=== PATIENT | male | born 1940 | race Caucasian/White ===

== ENCOUNTER → 2018-02-24 15:27 | Outpatient (CLI) | payer MEDICARE, SELFPAY ==
[2018-02-24 16:13] LABS: PSA,Total- Diagnostic 3.01 ng/mL (0.0-4.0)
== END ==
PROVIDERS: Visit Provider Urology
DX: C61 Malignant neoplasm of prostate (principal)
CPT/HCPCS: 36415; 84153

== ENCOUNTER → 2018-07-21 15:07 | Outpatient (CLI) | payer MEDICARE, SELFPAY | PROVIDERS: Referring Provider Urology; Visit Provider Urology | DX: C61 Malignant neoplasm of prostate (principal); R97.20 Elevated prostate specific antigen [PSA] | CPT/HCPCS: 36415; 84153 ==

== ENCOUNTER → 2018-08-02 07:58 | Outpatient (CLI) | payer MEDICARE, SELFPAY ==
--- NOTE | 2018-08-02 08:12 | NM_ITS ---
CLINICAL: 78-year-old male with reported history of carcinoma of the prostate. WHOLE BODY 99m Tc MDP RADIONUCLIDE BONE SCINTIGRAPHY COMPARISON: Previous whole body bone scintigraphy study dated 06/16/2016 FINDINGS: Following the intravenous administration of 25.4 mCi of 99m Tc MDP, whole body bone images reveal: 1. Increased radiopharmaceutical concentration is identified in the acromioclavicular and sternoclavicular compartments of both shoulders, medial glenohumeral compartment of the right shoulder, the bilateral hands, right and left knees, sixth thoracic posteriorly on the left, left sacroiliac joint. 2. The remaining skeletal structures are scintigraphically unremarkable with normal-appearing renal images and urinary bladder activity identified. NM/Bone Scan Whole Body IMPRESSION: 1. The increase in radiopharmaceutical concentration persistently defined in the bilateral shoulders, right and left hands, knees bilaterally, thoracic spine and left sacroiliac joint remains most consistent with degenerative arthritis. 2. Overall compared to the previous whole-body bone scintigraphy study dated 06/16/2016, there is no significant interval change. No current typical scintigraphic evidence of skeletal metastatic disease is defined on the current examination. Electronically Signed: Pancho Gaston DO at 23:44 EST Tel , Service support ,
== END ==
PROVIDERS: Referring Provider Urology; Visit Provider Urology
DX: C61 Malignant neoplasm of prostate (principal)
CPT/HCPCS: 36415; 78306; 84153

== ENCOUNTER → 2020-03-11 17:40 | Outpatient (CLI) | payer MEDICARE, SELFPAY ==
--- NOTE | 2020-03-11 17:45 | CT_ITS ---
STUDY: CT ABDOMEN AND PELVIS WITH CONTRAST REASON FOR EXAM: Male, 79 years old. MALIGNANT PROSTATE NEOPLASM YEARLY CHECK UP -- HX:HTN,COPD,PROSTATE CANCER WITH RADIATION RADIATION DOSAGE (If Supplied By Facility): CTDIvol = ( 21.43 ) mGy, DLP = ( 2226.42 ) mGycm TECHNIQUE: Transaxial images were obtained from the dome of the diaphragm to the symphysis pubis with oral contrast. Oral and amp; IV Readi-CAT and amp; 100mL Isovue-300 was administered. Sagittal and coronal images were reconstructed. Individualized dose optimization techniques were used for this CT. COMPARISON: Comparison is made with prior examination dated June 11, 2016. FINDINGS: Stable mild scarring at the lung bases. Prior CABG. Coronary artery calcification. Stable 1.8 cm cyst in the dome of the left lobe of the liver. Normal gallbladder and extrahepatic biliary system. Normal spleen. There is diffuse atrophy of the pancreas. Normal bilateral adrenal glands. Stable 3.4 cm cyst in the right kidney. 2.5 cm x 3.7 cm cyst in the upper pole of the left kidney. This is unchanged. Normal visualized stomach. Normal small intestine. There are multiple colonic diverticula consistent with diverticulosis. The appendix is visualized and appears normal. There is diffuse atherosclerotic calcification of the abdominal aorta and the major visceral branches, without a demonstrated aneurysm. Normal inferior vena cava. Normal retroperitoneum. Normal urinary bladder. There are prostatic calcifications. The prostate measures 4.6 cm x 5.1 cm. Metallic radiation seeds are seen along the inferior aspect of the prostate gland. Normal abdominal wall. Normal osseous structures. CT/Abdomen/Pelvis WITH Contrast IMPRESSION: Stable examination. Electronically Signed: Deven Heck, at 15:13 EDT , Service support ,
[2020-03-11 18:11] LABS: CREATININE FINGERSTICK 0.8 mg/dL (0.70-1.30); EGFR FINGERSTICK > 60.0000 mL/min (>60)
== END ==
PROVIDERS: PCP Nurse Practitioner Primary Care; Referring Provider Nurse Practitioner Adult Health; Visit Provider Nurse Practitioner Adult Health
DX: C61 Malignant neoplasm of prostate (principal)
CPT/HCPCS: 74177; Q9967

== ENCOUNTER → 2020-03-14 09:48 | Outpatient (CLI) | payer MEDICARE, SELFPAY ==
--- NOTE | 2020-03-14 09:52 | NM_ITS ---
CLINICAL: 79-year-old male with reported history of carcinoma of the prostate. WHOLE BODY 99m Tc MDP RADIONUCLIDE BONE SCINTIGRAPHY COMPARISON: Previous whole body bone scintigraphy study dated 08/02/2018, CT of the abdomen-pelvis report 03/11/2020 FINDINGS: Following the intravenous administration of approximately 25.0 mCi of 99m Tc MDP, whole body bone images reveal: 1. Increased radiopharmaceutical concentration is presently identified in the acromioclavicular and sternoclavicular compartments of both shoulders, bilateral knees, left posterior sacrum, right and left hands. 2. The remaining skeletal structures are scintigraphically unremarkable with normal-appearing renal images and urinary bladder activity identified. NM/Bone Scan Whole Body IMPRESSION: 1. The increase in radiopharmaceutical concentration currently defined in the bilateral shoulders and knees, sacrum, hands bilaterally is commensurate with degenerative arthritis. 2. Overall compared to the previous whole body bone scintigraphy study dated 08/02/2018, there is no significant interval change. No present typical scintigraphic evidence of diffuse axial skeletal metastatic disease is observed. Electronically Signed: Pancho Gaston DO at 22:58 EDT Tel , Service support ,
== END ==
PROVIDERS: PCP Nurse Practitioner Primary Care; Referring Provider Nurse Practitioner Adult Health; Visit Provider Nurse Practitioner Adult Health
DX: C61 Malignant neoplasm of prostate (principal)
CPT/HCPCS: 78306

== ENCOUNTER → 2021-04-29 14:05 | Outpatient (CLI) | payer MEDICARE, SELFPAY ==
--- NOTE | 2021-04-29 13:30 | PET_ITS ---
EXAMINATION: 18F Fluciclovine PET/CT CLINICAL HISTORY: A 80-year-old male with history of carcinoma of the prostate presenting for restaging examination. COMPARISON EXAMINATION: CT of the abdomen and pelvis report dated 03/12/20. PROCEDURE: The patient received an intravenous bolus injection of 9.3 mCi of Axumin (fluciclovine F-18), on the imaging table with the patient in the supine position followed by an intravenous normal saline flush. The patient in the supine position with arms above the head, CT scan for attenuation correction was performed immediately following the bolus injection and left up for 1-2 minutes. The PET scan acquisition was begun within 3-5 minutes following injection from mid thigh to the base of the skull. The total scan time was registered between 20-30 minutes. Axumin (fluciclovine F-18) injection is indicated for positron emission tomography PET imaging in men with suspected prostate cancer recurrence based on elevation of the serum prostatic surface antigen (PSA) levels following prior treatment intervention. HEIGHT: 73 inches. WEIGHT: 224 lbs. LIVER BLOOD POOL SUV: 7.9 BLOOD POOL: 1.5 BONE MARROW: 2.1 INDEX LESION SIZE SUV INTERPRETATION Lower pelvis, prostate gland, heterogeneous 27.7 x 38.6-mm (frame 43) 12.0 > hepatic ref. Fulfills quantitative criteria for viable neoplasm FINDINGS: Head/Neck: There is no evidence of abnormal increased radiopharmaceutical concentration on review of the acquisitions of the cranial vault, bilateral lateral and anterior neck structures. CHEST: There is visualization of left ventricular myocardial radiotracer uptake. Otherwise, there is no evidence of abnormal increased 18F fluciclovine uptake on inspection of all three axis reconstructions. Pertinent chest CT findings are as follows. There is evidence of prior median sternotomy. Coronary arterial calcification is observed. There is atherosclerotic calcification defined in the thoracic aorta without evidence of dilatation-aneurysm formation. Subcentimeter bilateral axillary and scattered mediastinal soft tissue reveals no evidence of increased radiopharmaceutical concentration. There are no parenchymal densities-nodules defined in the right and left hemithorax with facilitated tracer uptake readily identified. Abdomen/Pelvis: Intense increased radiopharmaceutical concentration is defined in the distribution of the prostate gland. Uptake involves the left anterior-lateral peripheral-transition zones extending posteriorly to the base to include the peripheral zone. The calculated maximal standard uptake value is 12.0, greater than the liver reference. The maximal axial diameter of the corresponding metabolic, morphologic abnormality on review of CT of the pelvis dated 04/29/21 is 27.7-mm (transverse) x 38.6-mm (AP). Physiologic radiopharmaceutical concentration is defined in the hepatic, splenic parenchyma, right and left kidneys, intestinal tract and pancreatic head-tail. Pertinent abdomen and pelvis CT findings are as follows. Atherosclerotic calcification is defined in the abdominal aorta without evidence of aneurysm. Abdominal-pelvic arterial calcification is defined. Right and left inguinal soft tissue densities with fatty hilus are a metabolic. Exophytic cyst formation is observed in the right kidney. Calcifications are noted in the bilateral renal units. Calcified granuloma formation is noted in the splenic parenchyma. A fat-containing left inguinal hernia is noted. Skeletal: Degenerative changes are noted in the cervical, thoracic and lumbar spine without evidence of increased radiopharmaceutical concentration. There are no sclerotic, mixed sclerotic-lytic and/or lytic changes noted within the context of the visualized appendicular and axial skeletal structures. PET/PET/CT Tumor Base -Thigh Subs IMPRESSION: 1. ABNORMAL EXAMINATION INDICATIVE OF MALIGNANT VIABLE NEOPLASM. 2. Increased radiopharmaceutical concentration heterogeneously defined in the prostate gland fulfills quantitative criteria for malignant transformation. (Mak et al, Journal of Nuclear Medicine 55:1986, 2014). 3. No other definitive scintigraphic abnormalities are identified. Electronic Signature Pancho Gaston D.O. Electronically Signed: Pancho Gaston DO at 15:19 EDT Tel , Service support ,
== END ==
PROVIDERS: PCP Nurse Practitioner Primary Care; Referring Provider Urology; Visit Provider Urology
DX: C61 Malignant neoplasm of prostate (principal)
CPT/HCPCS: 78815; A9588

== ENCOUNTER → 2022-07-07 | Outpatient (CLI) | payer MEDICARE, SELFPAY | END | disposition home or self-care (01) | LOC: LAB 11:03 | PROVIDERS: PCP Nurse Practitioner Primary Care; Referring Provider Registered Nurse; Visit Provider Registered Nurse | DX: C61 Malignant neoplasm of prostate (principal) | CPT/HCPCS: 36415; 84153 ==

== ENCOUNTER → 2023-01-21 | Outpatient (CLI) | payer MEDICARE, SELFPAY | END | disposition home or self-care (01) | LOC: LAB 15:07 | PROVIDERS: PCP Nurse Practitioner Primary Care; Referring Provider Urology; Visit Provider Urology | DX: C61 Malignant neoplasm of prostate (principal) | CPT/HCPCS: 36415; 84153 ==

== ENCOUNTER → 2023-03-09 | Outpatient (CLI) | payer MEDICARE, SELFPAY ==
--- NOTE | 2023-03-09 09:27 | NM_ITS ---
CLINICAL: 79-year-old male with history of primary prostate carcinoma. WHOLE BODY 99m Tc MDP RADIONUCLIDE BONE SCINTIGRAPHY COMPARISON: Previous whole body bone scintigraphy study dated 03/14/2020 FINDINGS: Following the intravenous administration of 26.3 mCi of 99m Tc MDP, whole body bone images reveal: 1. Increased radiotracer distribution is defined in the acromioclavicular, sternoclavicular compartments of both shoulders, the glenohumeral compartment of the right shoulder, the fifth lumbar vertebra posteriorly on the left, the medial tibial compartments of both knees. 2. The remaining skeletal structures are scintigraphically unremarkable with normal-appearing renal images and urinary bladder activity identified. NM/Bone Scan Whole Body IMPRESSION: 1. The increase in radiopharmaceutical distribution defined in the bilateral shoulders, the fifth lumbar vertebra and knee articulations bilaterally is commensurate with degenerative arthrosis. 2. Overall compared to the previous whole body bone scintigraphy study dated 03/14/2020, there is minimal interval change. Electronically Signed: Pancho Gaston, at 10:28 EDT ,
== END | disposition home or self-care (01) ==
PROVIDERS: PCP Nurse Practitioner Primary Care; Referring Provider Urology; Visit Provider Urology
DX: N28.1 Cyst of kidney, acquired (principal); C61 Malignant neoplasm of prostate
CPT/HCPCS: 78306; A9503

== ENCOUNTER → 2023-05-11 | Outpatient (CLI) | payer MEDICARE, SELFPAY ==
--- NOTE | 2023-05-11 17:52 | CT_ITS ---
STUDY: CT ABDOMEN AND PELVIS WITHOUT AND WITH CONTRAST REASON FOR EXAM: Male, 82 years old. PROSTATE CANCER RADIATION DOSAGE (If Supplied By Facility): CTDIvol = ( 24.91 ) mGy, DLP = ( 3622.06 ) mGycm TECHNIQUE: IV 100mL Isovue-370 was administered. Transaxial images were obtained from the dome of the diaphragm to the symphysis pubis. Multiplanar coronal and sagittal images were reformatted. Individualized Dose Optimization Techniques Were Used For This CT. COMPARISON: FINDINGS: The visualized lung bases demonstrate hyperaeration. The visualized portions of the heart are within normal limits. 1.6 cm left hepatic cyst in the liver. Normal gallbladder and extrahepatic biliary system. Normal spleen. Normal pancreas. Normal bilateral adrenal glands. Normal visualized stomach. Normal small intestine. Diverticulosis of the colon. The appendix is visualized and appears normal. 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 No retroperitoneal adenopathy. Vascular calcifications and possible nonobstructive calculi in the kidneys. Bilateral renal cysts. Mild wall thickening of the urinary bladder. Bilateral calculi are noted at the UVJs up to 11 mm. Mild fatty density in the inguinal canals. Small fatty umbilical hernia. Normal osseous structures. 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 Vascular calcifications and possible nonobstructive calculi in the kidneys. Bilateral renal cysts. Mild wall thickening of the urinary bladder. Bilateral calculi are noted at the UVJs up to 11 mm. Mild fatty density in the inguinal canals. Hepatic cyst. Electronically Signed: Roshan Arguelles DO at 20:11 EDT ,
[2023-05-11 18:18] LABS: CREATININE FINGERSTICK < 0.9 mg/dL (0.70-1.30); EGFR FINGERSTICK > 60.0000 mL/min (>60)
== END | disposition home or self-care (01) ==
LOC: CT 17:45
PROVIDERS: PCP Nurse Practitioner Primary Care; Referring Provider Urology; Visit Provider Urology
DX: C61 Malignant neoplasm of prostate (principal); N28.1 Cyst of kidney, acquired
CPT/HCPCS: 74178; Q9967

== ENCOUNTER 2023-06-23 07:28 | Day surgery (SDC) | payer MEDICARE, SELFPAY ==
[2023-06-23] VITALS (7 sets, daily range): BP systolic 135–151; BP diastolic 61–68; PULSE 58–68; RESP 16; TEMP 36.1–37.3; O2SAT 91–100; BMI 28.6
[2023-06-23] MEDS: Lactated Ringers 1,000 ML 15 ML IV (08:19)
--- NOTE | 2023-06-23 08:59 | HP.PCM_ITS ---
HPI - General General Date of Service: 06/23/23 Chief Complaint: Obstruction of both ureters with large ureteral stones HPI Narrative MARZENA TAPIA, is a 83 M who presents to the hospital for bilateral ureteroscopy laser lithotripsy of stones in the ureters, he had prior stents placed, he does have a scarred down urethra so we did a dilation of the urethra prostatic urethra and placed a Cervantes catheter he now presents to the hospital for bilateral ureteroscopy and stent placement and laser lithotripsy of stones. ON LICENSE OF [facility] Medical History (Updated 06/21/23 @ 11:00 by Mariana Quinn) Alcohol use Asthma Cancer Cardiology follow-up encounter COPD (chronic obstructive pulmonary disease) Easy bruising Former smoker Hepatitis High cholesterol History of echocardiogram History of edema History of stress test Hypertension Indwelling urethral catheter present Leg cramps On home oxygen therapy Prostate disease Restless legs Wears dentures Wears glasses Wears partial dentures Home Medications albuterol sulfate 2.5 mg/3 mL (0.083 %) solution for nebulization 2.5 mg inhalation BID 06/21/23 [History Last Taken 06/23/23] ascorbic acid (vitamin C) 1,000 mg tablet,extended release (C Complex) 1,000 mg PO DAILY 06/21/23 [History Last Taken Unknown] budesonide 160 mcg-glycopyr 9 mcg-formot 4.8 mcg/actuation HFA inhaler (Breztri Aerosphere) 2 inh inhalation BID 06/21/23 [History Last Taken 06/23/23] cholecalciferol (vitamin D3) 125 mcg (5,000 unit) tablet (Vitamin D3) 125 mcg PO DAILY 06/21/23 [History Last Taken Unknown] coenzyme Q10 100 mg capsule (CoQ-10) 100 mg PO DAILY 06/21/23 [History Last Taken Unknown] collagen,hydrolysate 500 mg-biotin 800 mcg-ascorbic acid 50 mg capsule (Collagen 1500 Plus C) 1 cap PO QHS 06/21/23 [History Last Taken Unknown] cyanocobalamin-liver extract tablet 1 tab PO DAILY 06/21/23 [History Last Taken Unknown] furosemide 20 mg tablet 20 mg PO DAILY 06/21/23 [History Last Taken Unknown] guaifenesin 600 mg tablet, extended release 12 hr (Mucus Relief ER) 1,200 mg PO DAILY 06/21/23 [History Last Taken 06/23/23 06:30] ipratropium bromide 17 mcg/actuation HFA aerosol inhaler (Atrovent HFA) 2 inh inhalation BID 06/21/23 [History Last Taken 06/23/23] krill 500 mg-omega-3 150 mg-dha 45 mg-epa 75 df-moasyyq-nvpsy capsule (krill oil) 1 cap PO DAILY 06/21/23 [History Last Taken 06/20/23] losartan 100 mg tablet 100 mg PO DAILY 06/21/23 [History Last Taken 06/23/23 06:30] magnesium 100 mg tablet 400 mg PO QHS 06/21/23 [History Last Taken Unknown] montelukast 10 mg tablet 10 mg PO QHS 06/21/23 [History Last Taken Unknown] pyridoxine (vitamin B6) 100 mg tablet 100 mg PO DAILY 06/21/23 [History Last Taken Unknown] rivaroxaban 2.5 mg tablet (Xarelto) 2.5 mg PO Q24H 06/21/23 [History Last Taken 06/19/23] saw palmetto 450 mg capsule 450 mg PO BID 06/21/23 [History Last Taken Unknown] selenium 200 mcg tablet 200 mcg PO DAILY 06/21/23 [History Last Taken Unknown] simvastatin 5 mg tablet 5 mg PO QHS 06/21/23 [History Last Taken Unknown] zinc gluconate 50 mg tablet 50 mg PO DAILY 06/21/23 [History Last Taken Unknown] Allergy/AdvReac Type Severity Reaction Status Date / Time ciprofloxacin [From Cipro] Allergy Intermediate Rash Verified 06/23/23 08:03 lisinopril AdvReac Mild Other Verified 06/23/23 08:03 Surgical History (Updated 06/21/23 @ 11:00 by Mariana Quinn) History of cardiac catheterization History of cystoscopy Hx of colonoscopy Hx of cystoscopy Hx of heart bypass surgery Hx of left cataract extraction Hx of right cataract extraction Social History Smoking Status: Former smoker Vital Signs Vital Signs Vital Signs: 06/23/23 08:07 06/23/23 08:07 Temperature 99.1 F Temperature Source Temporal Pulse Rate 68 Respiratory Rate 16 Respiratory Pattern Normal Blood Pressure 135/61 H Blood Pressure Mean 85 Blood Pressure Source Monitor Blood Pressure Position Semi-Fowlers Blood Pressure Location Left Arm Pulse Ox 91 Oxygen Delivery Method Room Air Weight Weight: 98 kg Body Mass Index (BMI) 28.6
[2023-06-23] MEDS: Cefazolin 2 GM in 0.9% Normal Saline (100mL Bag) 100 ML IV (09:30)
--- NOTE | 2023-06-23 11:00 | DCINST_ITS ---
Discharge Instructions Diet Discharge Diet: No restrictions Activity Discharge Activity: Return to Normal Activity and May Not Drive (while taking narcotic pain medications.) Dressing / Incision Call your doctor if you observe: Fever of 101 or Higher Follow Up Care Please Follow Up With: Britton Morocho MD When: Call [phone] for an appointment Test Results: Test results from this visit will be discussed in further detail at your follow- up appointment, if applicable. Discharge Plan Admission Primary Reason for Your Visit: Laser of stones Attending Provider: Britton Morocho Primary Care Provider: Damien Arias NP Discharge Orders/Prescriptions Prescriptions: New cephalexin 500 mg capsule 500 mg PO TID Qty: 15 0RF Continued guaifenesin [Mucus Relief ER] 600 mg tablet extended release 12hr 1,200 mg PO DAILY Patient Comments: TAKE 1 TABLET BY MOUTH TWICE A DAY FOR 7 DAYS albuterol sulfate 2.5 mg /3 mL (0.083 %) solution for nebulization 2.5 mg inhalation BID Patient Comments: TAKE 1 VIAL INHALATION FOUR TIMES A DAY NEEDED Atrovent HFA 17 mcg/actuation HFA aerosol inhaler 2 inh INHALATION BID Breztri Aerosphere 160-9-4.8 mcg/actuation HFA aerosol inhaler 2 inh INHALATION BID losartan 100 mg tablet 100 mg PO DAILY pyridoxine (vitamin B6) 100 mg tablet 100 mg PO DAILY cyanocobalamin-liver extract Tablet 1 tab PO DAILY Xarelto 2.5 mg tablet 2.5 mg PO Q24H furosemide 20 mg tablet 20 mg PO DAILY magnesium 100 mg tablet 400 mg PO QHS simvastatin 5 mg tablet 5 mg PO QHS krill oil [id number] mg capsule 1 cap PO DAILY coenzyme Q10 [CoQ-10] 100 mg capsule 100 mg PO DAILY Collagen 1500 Plus C 500 mg-800 mcg- 50 mg capsule 1 cap PO QHS saw palmetto 450 mg capsule 450 mg PO BID Rx Instructions: give with food (meal/snack) selenium 200 mcg tablet 200 mcg PO DAILY zinc gluconate 50 mg tablet 50 mg PO DAILY cholecalciferol (vitamin D3) [Vitamin D3] 125 mcg (5,000 unit) tablet 125 mcg PO DAILY C Complex 1,000 mg tablet extended release 1,000 mg PO DAILY montelukast 10 mg tablet 10 mg PO QHS Referrals / Follow Up: Baltes,Damien SURVEY RESEARCH TEACHER, SURVEY RESEARCH TEACHER-C [Primary Care Provider] - Disposition Disposition (needs filled in before D/C Order can be placed): Home, Self Care
--- NOTE | 2023-06-23 11:00 | PCM.OPRPT ---
Report of Operation Date of Procedure: 06/23/23 Pre-Operative Diagnosis: Prostatic urethral stricture, bilateral ureteral calculi and ureteral stricture Post-Operative Diagnosis: Same Surgery/Procedure Performed:: Cystoscopy, dilation of prostatic urethral stricture, balloon dilation of the right ureter, right ureteroscopy laser lithotripsy of stone and right stent placement, balloon dilation of the left ureter, left ureteroscopy laser lithotripsy stone, and left stent placement Description of Surgical Findings:: Indication is an 83-year-old male with a history of prostate cancer was treated with radiation therapy in the past he now has his extremely scarred down prostatic channel, so on prior surgery does had a Cervantes placed today working to dilate the urethral stricture in the prostatic membranous urethra and then I am getting a laser out stones in both the ureters and also dilate the ureters they appear to be narrowed and strictured. Patient was taken back to the operating room at a smooth induction of general anesthesia he was placed in dorsal lithotomy position. The penis and testicles were prepped and draped in usual sterile fashion, the existing Cervantes catheter been removed, I then went into the bladder with a 21 Macedonian rigid cystourethroscope grabbed the left stent pulled out the meatus put a wire through the stent and then put a dual-lumen catheter up and then put a second wire as a safety wire and then over the working wire went in with a flexible ureteroscope I then reached the stone then using a 300 ?m laser fiber the stone was lasered a little tiny pieces took a long time to laser the stone close quite hard. After the stone was lasered into small little pieces that should all pass on their own and then advance a balloon dilator and then balloon dilated the left ureteral stricture at the distal end of the ureter was quite tight so in order to help facilitate the passage of the stones I balloon dilated the stricture and then over the wire placed a stent in the left side. I then went to the right side grabbed the existing stent on the right side pulled out the meatus put a wire up this stent it was 0.038 Glidewire I then put a dual-lumen catheter over the Glidewire and put second wire and working wire and a safety wire. I went over the working wire with a safety wire in place and then encountered the stone again and then we lasered the stone using a 300 ?m laser fiber the stone was lasered completely and the small pieces. Then over the safety wire I advanced a 15 Macedonian 10 cm balloon dilator and balloon dilated the distal right ureter for stricture in the distal ureter after this was dilated then I backed out the balloon dilator and then put a stent up on the right side. Then at this point a Cervantes catheter was placed to allow the the urethra to heal from the dilation I did in the levo stents in the let this heal up from the dilation and let the stones pass and then I see him back next for cystoscopy stent removal and removal of the catheter. Patient was extubated taken back to PACU in good condition Surgeon: Britton Morocho Type of Anesthesia: General Drains: Cervantes catheter, bilateral stents Admit VTE Documentation VTE Present on Admission: No VTE Mechan Device Prophylaxis: SCD's
[2023-06-23] MEDS: Lactated Ringers 1,000 ML 100 ML IV (11:14)
[2023-06-23] MEDS: Acetaminophen 325 MG Tablet 650 MG PO (12:44)
--- NOTE | 2023-06-23 12:48 | SUR.PHASEII ---
PATIENT IS GETTING DRESSED TO GO HOME. DENIES QUESTIONS. READY TO DISCHARGE.
== END 2023-06-23 13:05 | disposition home or self-care (01) ==
LOC: SDC 07:29 → AC 07:30
PROVIDERS: PCP Nurse Practitioner Primary Care; Referring Provider Urology; Visit Provider Urology
PROC: 0TJ98ZZ Inspection of Ureter, Via Natural or Artificial Opening Endoscopic (ICD-10-PCS; CPT 52352; principal; 2023-06-23 09:30)
DX: N13.5 Crossing vessel and stricture of ureter without hydronephrosis (principal); J44.9 Chronic obstructive pulmonary disease, unspecified; N20.1 Calculus of ureter; I10 Essential (primary) hypertension; E78.00 Pure hypercholesterolemia, unspecified; Z79.899 Other long term (current) drug therapy; Z87.891 Personal history of nicotine dependence; Z99.81 Dependence on supplemental oxygen; Z79.01 Long term (current) use of anticoagulants
CPT/HCPCS: 52356; 00873; J7120; 76000; C1726; C1758; C1769; C2617; J2405

== ENCOUNTER 2023-06-25 13:33 | Inpatient (IN) | payer MEDICARE, SELFPAY ==
[2023-06-25] VITALS (18 sets, daily range): BP systolic 105–136; BP diastolic 55–68; PULSE 76–92; RESP 26–36; TEMP 36.9–38.9; O2SAT 90–99; BMI 30.8; BMI 28.5
--- NOTE | 2023-06-25 13:54 | EKG12_ITS ---
Test Reason : Blood Pressure : / mmHG Vent. 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
--- NOTE | 2023-06-25 14:00 | EX.ED.DYSGE1 ---
HPI History of Present Illness Chief Complaint: Weakness Detail of Chief Complaint: Change in mental status Informant: patient and spouse/S.O. Onset/Context/Timing Onset: Yesterday Context: Sudden Onset Timing: Continuous and Waxes and wanes Quality: Mental status, weakness Location: Not applicable Current Severity: Significant per Maximum Severity: Significant per Worsened by: Per unknown Relieved by: Per nothing Associated Symptoms Associated Symptoms: Generalized weakness, decreased p.o. intake Narrative Narrative: Patient is an 83-year-old male who underwent lithotripsy this past Wednesday by Dr. Morocho. He is on cephalexin. He presents because of generalized weakness and sliding to the floor. He had poor intake. He has had change in mental status that started yesterday. Patient is somnolent. He does have history of COPD. He wears oxygen at night. states he is on 2.5 L at night. He is not on a CPAP or BiPAP machine. He does have an indwelling Cervantes. She reports that he has been taking his cephalexin. History is limited due to encephalopathy. Prior similar symptoms: No Recent Illness/Hospitalization: Yes [facility] Medical History Alcohol use Asthma Cancer Cardiology follow-up encounter COPD (chronic obstructive pulmonary disease) Easy bruising Former smoker Hepatitis High cholesterol History of echocardiogram History of edema History of stress test Hypertension Indwelling urethral catheter present Leg cramps On home oxygen therapy Prostate disease Restless legs Wears dentures Wears glasses Wears partial dentures Home Medications albuterol sulfate 2.5 mg/3 mL (0.083 %) solution for nebulization 2.5 mg inhalation BID PRN shortness of breath 06/21/23 [History Last Taken 06/23/23] ascorbic acid (vitamin C) 1,000 mg tablet,extended release (C Complex) 1,000 mg PO DAILY 06/21/23 [History Last Taken Unknown] budesonide 160 mcg-glycopyr 9 mcg-formot 4.8 mcg/actuation HFA inhaler (Breztri Aerosphere) 2 inh inhalation BID 06/21/23 [History Last Taken 06/23/23] cholecalciferol (vitamin D3) 125 mcg (5,000 unit) tablet (Vitamin D3) 125 mcg PO DAILY 06/21/23 [History Last Taken Unknown] coenzyme Q10 100 mg capsule (CoQ-10) 200 mg PO QHS 06/21/23 [History Last Taken Unknown] collagen,hydrolysate 500 mg-biotin 800 mcg-ascorbic acid 50 mg capsule (Collagen 1500 Plus C) 1 cap PO QHS 06/21/23 [History Last Taken Unknown] cyanocobalamin-liver extract tablet 1 tab PO DAILY 06/21/23 [History Last Taken Unknown] furosemide 20 mg tablet 20 mg PO DAILY 06/21/23 [History Last Taken Unknown] guaifenesin 600 mg tablet, extended release 12 hr (Mucus Relief ER) 1,200 mg PO DAILY 06/21/23 [History Last Taken 06/23/23 06:30] ipratropium bromide 17 mcg/actuation HFA aerosol inhaler (Atrovent HFA) 2 inh inhalation BID 06/21/23 [History Last Taken 06/23/23] krill 500 mg-omega-3 150 mg-dha 45 mg-epa 75 qz-zkkafas-yisce capsule (krill oil) 1 cap PO DAILY 06/21/23 [History Last Taken 06/20/23] losartan 100 mg tablet 100 mg PO DAILY 06/21/23 [History Last Taken 06/23/23 06:30] magnesium 100 mg tablet 400 mg PO QHS 06/21/23 [History Last Taken Unknown] montelukast 10 mg tablet 10 mg PO QHS 06/21/23 [History Last Taken Unknown] pyridoxine (vitamin B6) 100 mg tablet 100 mg PO DAILY 06/21/23 [History Last Taken Unknown] rivaroxaban 2.5 mg tablet (Xarelto) 2.5 mg PO BID 06/21/23 [History Last Taken 06/19/23] saw palmetto 450 mg capsule 450 mg PO BID 06/21/23 [History Last Taken Unknown] selenium 200 mcg tablet 200 mcg PO DAILY 06/21/23 [History Last Taken Unknown] simvastatin 5 mg tablet 5 mg PO QHS 06/21/23 [History Last Taken Unknown] zinc gluconate 50 mg tablet 50 mg PO DAILY 06/21/23 [History Last Taken Unknown] cephalexin 500 mg capsule 500 mg PO TID #15 caps 06/23/23 [Rx Last Taken Unknown] Allergy/AdvReac Type Severity Reaction Status Date / Time ciprofloxacin [From Cipro] Allergy Intermediate Rash Verified 06/25/23 13:39 lisinopril AdvReac Mild Other Verified 06/25/23 13:39 Surgical History History of cardiac catheterization History of cystoscopy Hx of colonoscopy Hx of cystoscopy Hx of heart bypass surgery Hx of left cataract extraction Hx of right cataract extraction Social History (Updated 06/25/23 @ 14:[address] Moose Bello MD) household members: spouse Smoking Status: Former smoker substance use type: does not use ROS ROS ED Review of Systems ROS Unobtainable: due to mental status Integumentary Reports other Details: Appears ashed per and family member Neurologic Neurologic: Reports weakness EXAM Physical Exam Const Vital Signs: 06/25/23 13:35 06/25/23 13:56 06/25/23 13:57 Temperature 102.1 F H Temperature Source Oral Pulse Rate 92 Respiratory Rate 31 H Respiratory Effort Short of Breath Labored Respiratory Pattern Tachypnea Blood Pressure 132/61 H Blood Pressure Mean 84 Pulse Ox 94 94 Oxygen Delivery Method Non-Rebreather @ 15L/min Room Air Oxygen Flow Rate (L/min) 2 2 06/25/23 14:32 06/25/23 14:53 06/25/23 15:16 Temperature 99.5 F H 98.5 F Temperature Source Oral Pulse Rate 85 81 Respiratory Rate 32 H 26 H Respiratory Effort Respiratory Pattern Blood Pressure 129/63 H 119/59 L Blood Pressure Mean 85 79 Pulse Ox 93 93 93 Oxygen Delivery Method Nasal Cannula Nasal Cannula Oxygen Flow Rate (L/min) 2 2 Positive well nourished and well developed Constitutional Narrative: Does not appear well. He is somnolent. General Appearance ED: well developed; Negative for cyanotic, diaphoretic or NAD HEENT Reports dry mucous membranes HEENT Narrative: Traumatic normocephalic. Ears normal. Nares patent. Posterior pharynx out erythema or exudate. Mucosa is dry. Mouth ED: Yes dry mucous membranes Mouth: dry mucous membranes Eyes PERRL and EOMs intact bilaterally General Eye ED: Negative for pale conjunctiva or scleral icterus Neck no lymphadenopathy, supple and no JVD Chest Wall inspection of chest normal and palpation of chest normal Resp No normal respiratory effort and No clear to auscultation bilaterally Auscultation: rales bilateral lower Cardio regular rate, regular rhythm, S1 normal heart sound, S2 normal heart sound and no murmurs GI non-tender; Negative for non-distended, hepatosplenomegaly or no masses Inspection: abdominal distention Auscultation: hypoactive bowel sounds Palpation: soft Narrative: Has an indwelling Cervantes. It appears to be slightly blood-tinged. Back/Spine no CVA tenderness Thoracic Spine / Upper Back: Negative for thoracic spinal tenderness Lumbar Spine / Lower Back: Negative for lumbar spinal tenderness Extremity Negative for normal to inspection Extremity Narrative: Patient has pedal edema bilaterally. Difficult to palpate PT pulse because of the edema. Capillary refill is he does have stigmata peripheral arterial is. Neuro No oriented x3, CN's II-XII intact bilaterally and no sensory deficits noted Neuro Narrative: Not awake. He is not oriented to time. Sensorium / Orientation: orientation impaired; Negative for alert Psych Psych Narrative: To assess because he [place]. Skin Skin Narrative: There is no acral cyanosis, pallor or jaundice. There is no mottling. Sepsis Attestation Sepsis Alert: Yes Date exam was performed: 06/25/23 Time exam was performed: 13:55 Possible Source of Sepsis: Genitourinary (Is urologic. With patient being hypoxic and bilateral rales he may have pulmonary etiology. Patient was treated with ceftriaxone which will cover both urologic and respiratory pathogens.) Sepsis Organ Dysfunction Criteria Present: Creatinine > 2.0 mg/dL, Lactic Acid > 2 mmol/L and New/Unexplained change in mental status MDM MDM MDM Narrative Medical decision making narrative: Since urologic procedure indwelling Cervantes presumption is patient has complicated urinary tract infection and is septic with infectious encephalopathy. Sepsis work-up was initiated and patient was started on ceftriaxone which will cover both respiratory and urologic pathogens. There is a concern for respiratory pathogens in light of the fact the patient is hypoxic requiring oxygen which is not abnormal for him. Because he has history of COPD and is somnolent ABG was obtained to assess CO2 as well as acid-base status. EKG to evaluate for cardiac ischemia. Patient did have recent surgery by Dr. Morocho on Wednesday, June 23. Patient had a TURP and not lithotripsy as informed me. History & Record Review Additional record(s) reviewed:: Prior outpatient record, Prior labs and Other (This link was accessed. There are no records for lithotripsy 9 days ago at [facility]. The racing secretary and handicapper was asked to obtain his operative note and most recent labs as well as discharge summary.) Lab Data Attestation: I reviewed the patient's lab results. Lab results narrative: Is elevated 18.6 thousand with shift. There is no bandemia. Patient is anemic with normal indices. Comprehensive metabolic panel is remarked for BUN of 42 and a creatinine 2.21. Estimated creatinine clearance is 28.9. Antibiotic dosing will need to be adjusted for additional doses. Urine is sent with infection with 25-50 RBCs and 25-50 WBCs with 1+ bacteria and no epithelial cells. Nitrites were positive. Lactate elevated 2.3. Labs: Laboratory Results - last 24 hr 06/25/23 06/25/23 13:40 14:05 WBC 18.6 H RBC 4.36 L Hgb 11.3 L Hct 37.4 L MCV 85.8 MCH 25.9 L MCHC 30.2 L RDW Std Deviation 56.4 H RDW Coeff of Luiz 18.1 H Plt Count 264 MPV 9.7 Immature Gran % (Auto) 3.900 H Neut % (Auto) 80.2 H Lymph % (Auto) 4.6 L [place] % (Auto) 11.1 H Eos % (Auto) 0.0 Baso % (Auto) 0.2 Absolute Neuts (auto) 14.9 H Absolute Lymphs (auto) 0.86 Nucleated RBC % 0 Diff Path Review January foll PT 16.5 H INR 1.3 APTT 43.9 H Sodium 138 Potassium 4.4 Chloride 104 Carbon Dioxide 23.0 Anion Gap 11 BUN 42 H Creatinine 2.21 H Estim Creat Clear Calc 28.29 Est GFR (MDRD) Af Amer 37 L Est GFR (MDRD) Non-Af 30 L BUN/Creatinine Ratio 19.0 Glucose 203 H Lactic Acid 2.3 H* Calcium 8.8 Total Bilirubin 0.70 AST 45 H ALT 50 Alkaline Phosphatase 82 Total Protein 7.5 Albumin 2.9 L Globulin 4.6 H Albumin/Globulin Ratio 0.6 L Urine Color Yellow Urine Clarity Sl. Cloudy Urine pH 6.0 Ur Specific [place] 1.015 Urine Protein 500 H Urine Glucose (UA) Normal Urine Ketones 5 H Urine Occult Blood 250 H Urine Nitrite Positive H Urine Bilirubin Negative Urine Urobilinogen Normal Ur Leukocyte Esterase 500 H Urine RBC 25-50 SEEN Urine WBC 25-50 SEEN Ur Squamous Epith Cells 0-5 SEEN Urine Bacteria 1+ Urine Mucus 0 SEEN Had any recent blood work. Patient BUN and creatinine are abnormal from several years ago. ABG Data Attestation: I personally reviewed and interpreted this ABG as follows: Interpretation: BG review is a alkalosis, respiratory and patient has a increased AA gradient. ABG results: ABG 06/25/23 14:29 Specimen Type ART Sample Site R Radial pH 7.49 H Bicarbonate Actual 23.8 Total CO2 25 Base Excess 0 O2 Saturation 92 L O2 % 2.5 ABG pCO2 31.5 L ABG pO2 59 L Juan Test Positive O2 Delivery Device Cannula Vent Mode Not entered Radiography Chest X-Ray - ED: 1 View and Read by ED Physician (Patient has atelectasis. There may be a small infiltrate versus atelectasis near the left costophrenic angle. There appears to be evidence of a hiatal hernia as well. We will need to review prior x-rays or this represents an atypical discoid atelectasis.) Diagnostic Testing: Clinical Impression(s) from Imaging Studies Chest X-Ray 06/25/23 14:10 IMPRESSION: Mild bibasilar atelectasis. Electronically Signed: Patrica Crabtree MD at 14:29 EDT , EKG Initial EKG: Attestation: I personally reviewed and interpreted this EKG as follows: Interpretation: Sinus Rhythm (89. There is no ossific changes noted in inferior lead. Presume this may be artifact. CA interval is 176 ms. Cures duration 110 ms. QT duration 358 ms. [place] is normal. Respiratory variance which is a normal variant.) Management Discussion w/another healthcare provider: Hospitalist (Dr. Lyssa ferreira. He states he would see patient in consultation. Since this is a postop complication he requested admission to Dr. Morocho's service.) and Inter Com Servicer (Her Marlenyo did call back. He is not surgery. He states he will see patient after surgery. He is stated to admit to his service. Since patient has severe sepsis with organ dysfunction encephalopathic will admit to stepdown unit.) Critical Care Time Critical Care Time: Yes Critical care time (excluding procedures): 30-74 minutes (32 minutes), Including time spent: (, Physical, documentation, review of prior records, initiation of therapy for sepsis), Discussing w/Patient &/or Family/Landcare Facilitator, Discussing w/Consultants and Arranging Admission or Transfer Discharge Plan Dx/Rx/DC Orders Clinical Impression: Fever, Severe sepsis with acute organ dysfunction, Complicated urinary tract infection, Acidosis, lactic, Acute hypoxic respiratory failure, Infectious encephalopathy Disposition Disposition: Acute Care [facility]
[2023-06-25 14:03] LABS: Absolute Lymphocyte Count 0.86 X10^3/uL (0.83-4.51); Absolute Neutrophil Count 14.9 X10^3/uL (2.0-7.7); Basophil# 0.04 X10^3/uL; Basophil% 0.2 % (0-1); Hematocrit 37.4 % (40-54); Hemoglobin 11.3 g/dL (13.0-16.5); Lymphocyte # 0.86 X10^3/ul (0.83-4.51); Lymphocyte % 4.6 % (19-41); Mean Corp Hgb Conc 30.2 g/dL (32-36); Mean Corpuscular Hgb 25.9 pg (27.0-32.0); Mean Corpuscular Volume 85.8 fL (80-94); Mean Platelet Vol. 9.7 fl (6.2-12.0); Monocyte# 2.06 X10^3/uL; Monocyte% 11.1 % (0-10); NRBC Flagged by Analyzer 0 % (0-5); Neutrophil # 14.89 X10^3/uL (2.7-7.7); Neutrophil % 80.2 % (47-70); POSITIVE DIFFERENTIAL YES; Platelet Count 264 K/mm3 (150-450); RBC Distribution Width CV 18.1 % (11.6-14.6); RBC Distribution Width SD 56.4 fl (35.1-43.9); Red Blood Count 4.36 M/mm3 (4.6-6.2); White Blood Count 18.6 K/mm3 (4.4-11.0)
[2023-06-25 14:08] LABS: Mucous, Urine 0 SEEN /hpf (<or=2+)
[2023-06-25 14:09] LABS: Differential Indicated SCAN CRITERIA MET
--- NOTE | 2023-06-25 14:10 | RAD_ITS ---
HISTORY: fever and hypoxia. TECHNIQUE: XR Chest 1 View. COMPARISON: None. FINDINGS: CARDIOMEDIASTINAL BORDERS: Cardiac silhouette mildly enlarged with midline sternotomy noted. Mediastinal contour unremarkable with calcification of the aorta. LUNGS: Moderate elevation of the right hemidiaphragm with mild linear bibasilar opacity. PLEURA: No pleural effusion or pneumothorax seen. OSSEOUS STRUCTURES: Degenerative change. RAD/Chest 1 View (Portable) IMPRESSION: Mild bibasilar atelectasis. Electronically Signed: Patrica Crabtree MD at 14:29 EDT ,
[2023-06-25 14:14] LABS: International Normalized Ratio 1.3; Prothrombin Time (Protime)PT. 16.5 SECONDS (11.7-14.9)
[2023-06-25 14:15] LABS: Partial Thromboplast Time 43.9 Seconds (24.1-36.2)
[2023-06-25 14:15] LABS: Color, Urine Yellow (Yellow); Glucose, Dipstick Normal (Normal); Ketone-Dipstick 5 mg/dl (Negative); Leukocyte Esterase-Dipstick 500 /ul (Negative); Nitrite-Dipstick Positive (Negative); Occult Blood-Urine 250 /ul (Negative); Protein-Dipstick 500 mg/dl (Negative); Specific Gravity, Urine 1.015 (1.002-1.030); Urine Bilirubin Dipstick Negative (Negative); Urine Clarity Sl. Cloudy (Clear); Urine Urobilinogen Normal (Normal)
[2023-06-25 14:22] LABS: Bacteria 1+ /hpf (None Seen); Red Blood Cells-Urine 25-50 SEEN /hpf (0-5); Squamous Epithelial Cells - UA 0-5 SEEN /hpf (0-5); White Blood Cells 25-50 SEEN /hpf (0-5)
[2023-06-25 14:22] LABS: ALB/GLOB Ratio 0.6 RATIO (0.9-2.4); AST(SGOT) 45 U/L (15-37); Alanine Aminotransfer ALT/SGPT 50 U/L (16-61); Albumin, Serum 2.9 g/dL (3.2-5.0); Alkaline Phosphatase 82 U/L (45-117); Anion Gap 11 (5-15); BUN 42 mg/dL (7-18); Calcium,Total 8.8 mg/dL (8.5-10.1); Chloride 104 mmol/L (98-107); Creatinine, Serum 2.21 mg/dL (0.70-1.30); EST Glomerular Filtration Rate 30 mL/min (>60); Est Glom Filt Rate - Afr Amer 37 mL/min (>60); Estimated Creatinine Clearance 28.29 ml/min; Globulin 4.6 g/dL (2.2-4.2); Glucose 203 mg/dL (74-106); Potassium 4.4 mmol/L (3.5-5.1); Protein, Total 7.5 g/dL (6.4-8.2); Sodium Level 138 mmol/L (136-145)
[2023-06-25 14:33] LABS: Allen Test Positive; Base Excess 0 mmol/L (-2 to +2); Bicarbonate 23.8 mmol/L (22-26); Blood Gas Specimen Type ART; FI02 2.5; Mode Not entered; O2 Delivery Device Cannula; PO2 59 mmHG (75-100); SITE R Radial; SO2 92 % (95-99); Total Carbon Dioxide 25 mmol/L; pCO2 31.5 mmHg (35-45); pH 7.49 (7.35-7.45)
[2023-06-25 14:33] LABS: Lactic Acid 2.3 mmol/L (0.4-1.9)
[2023-06-25] MEDS: Ceftriaxone 1 GM/50 ML BAG IV (14:50)
--- NOTE | 2023-06-25 16:39 | ED.RN ---
REPORT GIVEN TO DARÍO AQUINO. IN ICU.
[2023-06-25] MEDS: HYDROmorphone 0.5 MG/0.5 ML SYRINGE IV (16:48)
--- NOTE | 2023-06-25 17:33 | PCM.PN.HOSP ---
Subjective Subjective 84-year-old male presents to the hospital with weakness and fevers. About 2 weeks ago he presented to an outside hospital with a UTI and was started on antibiotics a few days later he was called back to the ED because culture data demonstrated that the antibiotics he was discharged on when he arrived at that time he was found to have an RENEE so they admitted him. Urology was consulted at that time and apparently performed a lithotripsy and stent placement. He was discharged last Wednesday doing well over the weekend and then this Wednesday he was supposed to have an outpatient cystoscopy with change in stents and he also had a urethral stricture dilatation Wednesday night and into he developed fevers and chills and did not feel very well and since he has not been improving his brought him into the hospital today. He has a white count of 18.6. Given the possibility of a postoperative complication he was admitted to urology with medicine consult Objective Data Objective Data Vital Signs: Vital Signs Temp Pulse Resp BP Pulse Ox O2 Del Method O2 Flow Rate 98.5 F 80 30 H 116/59 L 95 Nasal Cannula 2 06/25/23 15:56 06/25/23 16:54 06/25/23 16:54 06/25/23 16:54 06/25/23 17:31 06/25/23 17:31 06/25/23 17:31 Oxygen Flow Rate (L/min) 2 Oxygen Delivery Method Nasal Cannula Weight: 210 lb Body Mass Index (BMI) 28.5 Intake & Output: Intake and Output for Last 24 Hours 06/24/23 06/25/23 06/26/23 03:59 03:59 03:59 Intake Total 50 / 50 Balance 50 / 50 Lab / Micro Data 06/25/23 13:40 06/25/23 13:40 Labs: Laboratory Results - last 24 hr 06/25/23 13:40: WBC 18.6 H, RBC 4.36 L, Hgb 11.3 L, Hct 37.4 L, MCV 85.8, MCH 25.9 L, MCHC 30.2 L, RDW Std Deviation 56.4 H, RDW Coeff of Luiz 18.1 H, Plt Count 264, MPV 9.7, Immature Gran % (Auto) 3.900 H, Neut % (Auto) 80.2 H, Lymph % (Auto) 4.6 L, [place] % (Auto) 11.1 H, Eos % (Auto) 0.0, Baso % (Auto) 0.2, Absolute Neuts (auto) 14.9 H, Absolute Lymphs (auto) 0.86, Nucleated RBC % 0, Diff Path Review January, PT 16.5 H, INR 1.3, APTT 43.9 H, Sodium 138, Potassium 4.4, Chloride 104, Carbon Dioxide 23.0, Anion Gap 11, BUN 42 H, Creatinine 2.21 H, Estim Creat Clear Calc 28.29, Est GFR (MDRD) Af Amer 37 L, Est GFR (MDRD) Non-Af 30 L, BUN/Creatinine Ratio 19.0, Glucose 203 H, Lactic Acid 2.3 H*, Calcium 8.8, Total Bilirubin 0.70, AST 45 H, ALT 50, Alkaline Phosphatase 82, Total Protein 7.5, Albumin 2.9 L, Globulin 4.6 H, Albumin/Globulin Ratio 0.6 L 06/25/23 14:05: Urine Color Yellow, Urine Clarity Sl. Cloudy, Urine pH 6.0, Ur Specific [place] 1.015, Urine Protein 500 H, Urine Glucose (UA) Normal, Urine Ketones 5 H, Urine Occult Blood 250 H, Urine Nitrite Positive H, Urine Bilirubin Negative, Urine Urobilinogen Normal, Ur Leukocyte Esterase 500 H, Urine RBC 25-50 SEEN, Urine WBC 25-50 SEEN, Ur Squamous Epith Cells 0-5 SEEN, Urine Bacteria 1+, Urine Mucus 0 SEEN ABG Data ABG results: ABG 06/25/23 14:29 Specimen Type ART Sample Site R Radial pH 7.49 H Bicarbonate Actual 23.8 Total CO2 25 Base Excess 0 O2 Saturation 92 L O2 % 2.5 ABG pCO2 31.5 L ABG pO2 59 L Juan Test Positive O2 Delivery Device Cannula Vent Mode Not entered Radiography Diagnostic Testing: Radiology Impression Chest X-Ray 06/25/23 14:10 IMPRESSION: Mild bibasilar atelectasis. Electronically Signed: Patrica Crabtree MD at 14:29 EDT , Physical Exam Narrative General: Alert, Oriented x3, Cooperative, mild respiratory distress HEENT: Atraumatic, PERRLA, EOMI, Normocephalic Oral: Dry mucosa Neck: Supple, No JVD Lungs: Diminished, Normal air movement, No rhonchi, No wheeze, No rales, tachypneic Cardiovascular: Regular rate, Regular Rhythm, Normal S1, Normal S2, No murmurs Abdomen: Soft, Non Tender, Non-Distended, No Hepato-splenomegaly Extremities: No edema, Capillary Refill Less than 3 Seconds Skin: No rashes, No breakdown Musculoskeletal: No Tenderness to Palpation of Joints or Extremities Neurological: Cranial nerves II-XII grossly intact, Motor Exam 5/5 strength throughout, Sensory exam intact to light touch and pain Psych/Mental Status: Normal Affect, Appropriate Assessment & Plan Assessment/Plan (1) Complicated urinary tract infection: (2) Acute hypoxic respiratory failure: PLAN: Plan 1. Sepsis with acute hypoxic respiratory failure secondary to complicated UTI after urologic procedure ? We will admit to urology ? We will obtain lab work from the outside hospital to determine what his previous urine culture was to try to narrow antibiotic usage ? He does have a lactic acid of 2.3, will be cautious with fluids given cardiac history with possible heart failure 2. HTN/HLD/possible CHF/CAD status post CABG ? Given his elevated creatinine, will hold off on his Lasix ? Will hold off on his losartan as well given his elevated creatinine ? We will monitor his blood pressure and adjust as necessary ? Can continue with the simvastatin ? Unclear as to the usage of his Xarelto 2.5 mg p.o. twice daily hopefully outside hospital medical records can help clarify Sepsis Attestation Possible Source of Sepsis: Genitourinary Sepsis Organ Dysfunction Criteria Present: Creatinine > 2.0 mg/dL and Lactic Acid > 2 mmol/L Charges/Coding Visit Charges Inpatient E&M: 12568 Subs Hosp L2
[2023-06-25 18:00] LABS: Reflex Lactate? Y
--- NOTE | 2023-06-25 18:23 | NURSING ---
1649- Dr. Colbert called into the unit, asking about if paperwork was received from [facility]. RN informed MD that patient is not in unit- to call the ER. This RN then asked the MD if he would be placing admission orders, none in yet. Dr. Colbert informed this RN that Dr. Morocho will be the admitting physician, and hospitalist service as a consult. 1822-Dr. Morocho notified that patient is in the ICU, stable condition. This RN asked the MD if he would be coming in to see patient and placing admission orders. Dr. Morocho informed this RN that he is NOT the admitting physician, that if the patient is septic he needs to be under medical service. He will not place any admission orders. Nursing vending supervisor notified. Dr. Colbert notified to call into ICU.
--- NOTE | 2023-06-25 18:57 | CT_ITS ---
STUDY: CT ABDOMEN AND PELVIS WITHOUT CONTRAST REASON FOR EXAM: Male, 83 years old. abdominal pain and sepsis RADIATION DOSAGE (If Supplied By Facility): CTDIvol = ( 15.47 ) mGy, DLP = ( 858.05 ) mGycm TECHNIQUE: Transaxial images were obtained from the dome of the diaphragm to the symphysis pubis without oral contrast, and without intravenous contrast. Sagittal and coronal images were reconstructed. Individualized dose optimization techniques were used for this CT. COMPARISON: May 11, 2023. FINDINGS: The visualized lung bases demonstrate basilar consolidation/ atelectasis, left more than right. The visualized portions of the heart are within normal limits. 1.6 cm left hepatic hypoattenuated nodule in the liver. Normal gallbladder and extrahepatic biliary system. Normal spleen. Normal pancreas. Normal bilateral adrenal glands. Bilateral renal cysts. Bilateral ureteral stents are noted. Periureteral stranding along the right ureter. Normal visualized stomach. Normal small intestine. Diverticulosis of the colon. The appendix is not visualized. Calcified abdominal aorta with a focal mild dilatation in the infrarenal segment measuring 2.8 cm. Normal inferior vena cava. Normal retroperitoneum. Cervantes catheter in the urinary bladder with diffuse wall thickening. Normal abdominal wall. Normal osseous structures. CT/Abdomen/Pelvis without Cont IMPRESSION: Bilateral renal cysts. Bilateral ureteral stents are noted. Periureteral stranding along the right ureter. Wall thickening of urinary bladder. This may be inflammatory or infectious in etiology. Hepatic hypoattenuated nodule may be cystic in nature, similar to previous study Colonic diverticulosis. Bilateral basilar consolidations/atelectasis Electronically Signed: Roshan Arguelles DO at 20:05 EDT ,
--- NOTE | 2023-06-25 18:58 | PCM.HP.STD ---
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 He was put on broad-spectrum antibiotics I will continue with antibiotics with cefepime we will do supportive measures we will consult the ICU doctors while he is in the ICU. We will restart all his home meds. [facility] Medical History Alcohol use Asthma Cancer Cardiology follow-up encounter COPD (chronic obstructive pulmonary disease) Easy bruising Former smoker Hepatitis High cholesterol History of echocardiogram History of edema History of stress test Hypertension Indwelling urethral catheter present Kidney stones Leg cramps On home oxygen therapy Prostate disease Restless legs Wears dentures Wears glasses Wears partial dentures Home Medications albuterol sulfate 2.5 mg/3 mL (0.083 %) solution for nebulization 2.5 mg inhalation BID PRN shortness of breath 06/21/23 [History Last Taken 06/23/23] ascorbic acid (vitamin C) 1,000 mg tablet,extended release (C Complex) 1,000 mg PO DAILY 06/21/23 [History Last Taken Unknown] budesonide 160 mcg-glycopyr 9 mcg-formot 4.8 mcg/actuation HFA inhaler (Breztri Aerosphere) 2 inh inhalation BID 06/21/23 [History Last Taken 06/23/23] cholecalciferol (vitamin D3) 125 mcg (5,000 unit) tablet (Vitamin D3) 125 mcg PO DAILY 06/21/23 [History Last Taken Unknown] coenzyme Q10 100 mg capsule (CoQ-10) 200 mg PO QHS 06/21/23 [History Last Taken Unknown] collagen,hydrolysate 500 mg-biotin 800 mcg-ascorbic acid 50 mg capsule (Collagen 1500 Plus C) 1 cap PO QHS 06/21/23 [History Last Taken Unknown] cyanocobalamin-liver extract tablet 1 tab PO DAILY 06/21/23 [History Last Taken Unknown] furosemide 20 mg tablet 20 mg PO DAILY 06/21/23 [History Last Taken Unknown] guaifenesin 600 mg tablet, extended release 12 hr (Mucus Relief ER) 1,200 mg PO DAILY 06/21/23 [History Last Taken 06/23/23 06:30] ipratropium bromide 17 mcg/actuation HFA aerosol inhaler (Atrovent HFA) 2 inh inhalation BID 06/21/23 [History Last Taken 06/23/23] krill 500 mg-omega-3 150 mg-dha 45 mg-epa 75 [id number] capsule (krill oil) 1 cap PO DAILY 06/21/23 [History Last Taken 06/20/23] losartan 100 mg tablet 100 mg PO DAILY 06/21/23 [History Last Taken 06/23/23 06:30] magnesium 100 mg tablet 400 mg PO QHS 06/21/23 [History Last Taken Unknown] montelukast 10 mg tablet 10 mg PO QHS 06/21/23 [History Last Taken Unknown] pyridoxine (vitamin B6) 100 mg tablet 100 mg PO DAILY 06/21/23 [History Last Taken Unknown] rivaroxaban 2.5 mg tablet (Xarelto) 2.5 mg PO BID 06/21/23 [History Last Taken 06/19/23] saw palmetto 450 mg capsule 450 mg PO BID 06/21/23 [History Last Taken Unknown] selenium 200 mcg tablet 200 mcg PO DAILY 06/21/23 [History Last Taken Unknown] simvastatin 5 mg tablet 5 mg PO QHS 06/21/23 [History Last Taken Unknown] zinc gluconate 50 mg tablet 50 mg PO DAILY 06/21/23 [History Last Taken Unknown] cephalexin 500 mg capsule 500 mg PO TID #15 caps 06/23/23 [Rx Last Taken Unknown] Allergy/AdvReac Type Severity Reaction Status Date / Time ciprofloxacin [From Cipro] Allergy Intermediate Rash Verified 06/25/23 13:39 lisinopril AdvReac Mild Other Verified 06/25/23 13:39 Surgical History History of cardiac catheterization History of cystoscopy Hx of colonoscopy Hx of cystoscopy Hx of heart bypass surgery Hx of left cataract extraction Hx of right cataract extraction Social History household members: spouse Smoking Status: Former smoker substance use type: does not use ROS Review of Systems ROS Unobtainable: due to mental condition Constitutional Constitutional: Denies chills, fever(s) or malaise Eyes Eyes: Denies blurry vision or change in vision ENT HEENT: Reports none Cardiovascular Cardiovascular: Denies chest pain or palpitations Respiratory/Chest Respiratory/Chest: Denies cough or shortness of breath with exertion Gastrointestinal Gastrointestinal: Denies abdominal pain, constipation or diarrhea Musculoskeletal Musculoskeletal: Denies back pain, joint stiffness or joint swelling Integumentary Integumentary: Denies dry skin, jaundice, lesions or rash Neurologic Neurologic: Denies confusion, syncope or weakness Psychiatric Psychiatric: Reports none; Denies anxiety or depression Endocrine Endocrinology: Denies excessive sweating, fatigue or flushing Hematologic/Lymphatic Hematologic/Lymphatic: Denies anemia, easy bleeding or easy bruising Vital Signs Vital Signs Vital Signs: 06/25/23 13:35 06/25/23 13:56 06/25/23 13:57 Temperature 102.1 F H Temperature Source Oral Pulse Rate 92 Respiratory Rate 31 H Respiratory Effort Short of Breath Labored Respiratory Pattern Tachypnea Blood Pressure 132/61 H Blood Pressure Mean 84 Blood Pressure Source Blood Pressure Position Blood Pressure Location Pulse Ox 94 94 Oxygen Delivery Method Non-Rebreather @ 15L/min Nasal Cannula Oxygen Flow Rate (L/min) 2 2 06/25/23 14:32 06/25/23 14:53 06/25/23 15:16 Temperature 99.5 F H 98.5 F Temperature Source Oral Pulse Rate 85 81 Respiratory Rate 32 H 26 H Respiratory Effort Respiratory Pattern Blood Pressure 129/63 H 119/59 L Blood Pressure Mean 85 79 Blood Pressure Source Blood Pressure Position Blood Pressure Location Pulse Ox 93 93 93 Oxygen Delivery Method Nasal Cannula Nasal Cannula Oxygen Flow Rate (L/min) 2 2 06/25/23 15:56 06/25/23 15:56 06/25/23 16:54 Temperature 98.5 F Temperature Source Oral Pulse Rate 76 81 80 Respiratory Rate 34 H 31 H 30 H Respiratory Effort Respiratory Pattern Blood Pressure 120/55 L 120/55 L 116/59 L Blood Pressure Mean 76 76 78 Blood Pressure Source Blood Pressure Position Blood Pressure Location Pulse Ox 96 95 96 Oxygen Delivery Method Nasal Cannula Nasal Cannula Nasal Cannula Oxygen Flow Rate (L/min) 2 2 2 06/25/23 17:15 06/25/23 17:31 06/25/23 17:30 Temperature 100.3 F H Temperature Source Temporal Pulse Rate 82 77 Respiratory Rate 31 H 31 H Respiratory Effort Respiratory Pattern Blood Pressure 126/60 H 121/55 H Blood Pressure Mean 82 77 Blood Pressure Source Monitor Monitor Blood Pressure Position Semi-Fowlers Semi-Fowlers Blood Pressure Location Left Arm Left Arm Pulse Ox 96 95 96 Oxygen Delivery Method Nasal Cannula Nasal Cannula Nasal Cannula Oxygen Flow Rate (L/min) 2 2 2 06/25/23 17:45 06/25/23 18:00 Temperature Temperature Source Pulse Rate 78 77 Respiratory Rate 30 H 30 H Respiratory Effort Respiratory Pattern Blood Pressure 120/56 L 105/57 L Blood Pressure Mean 77 73 Blood Pressure Source Monitor Monitor Blood Pressure Position Semi-Fowlers Semi-Fowlers Blood Pressure Location Left Arm Left Arm Pulse Ox 96 97 Oxygen Delivery Method Nasal Cannula Nasal Cannula Oxygen Flow Rate (L/min) 2 2 Weight Weight: 95.254 kg Body Mass Index (BMI) 28.5 Physical Exam Narrative On examination he nation he is alert and communicative we will discuss his situation but he is a little confused he is not toxic looking. He is running a fever. Blood pressure is slightly low and he is currently in the ICU for hypotension and suppose it sepsis and also has lactic acid is elevated. Const alert and oriented x3 HEENT normocephalic Eyes PERRL Neck nuchal rigidity Results Medical Records Data Attestation: I reviewed the patient's medical records Lab / Micro Data 06/25/23 13:40 06/25/23 13:40 Labs: Laboratory Results - last 24 hr 06/25/23 13:40: WBC 18.6 H, RBC 4.36 L, Hgb 11.3 L, Hct 37.4 L, MCV 85.8, MCH 25.9 L, MCHC 30.2 L, RDW Std Deviation 56.4 H, RDW Coeff of Luiz 18.1 H, Plt Count 264, MPV 9.7, Immature Gran % (Auto) 3.900 H, Neut % (Auto) 80.2 H, Lymph % (Auto) 4.6 L, [place] % (Auto) 11.1 H, Eos % (Auto) 0.0, Baso % (Auto) 0.2, Absolute Neuts (auto) 14.9 H, Absolute Lymphs (auto) 0.86, Nucleated RBC % 0, Diff Path Review January, PT 16.5 H, INR 1.3, APTT 43.9 H, Sodium 138, Potassium 4.4, Chloride 104, Carbon Dioxide 23.0, Anion Gap 11, BUN 42 H, Creatinine 2.21 H, Estim Creat Clear Calc 28.29, Est GFR (MDRD) Af Amer 37 L, Est GFR (MDRD) Non-Af 30 L, BUN/Creatinine Ratio 19.0, Glucose 203 H, Lactic Acid 2.3 H*, Calcium 8.8, Total Bilirubin 0.70, AST 45 H, ALT 50, Alkaline Phosphatase 82, Total Protein 7.5, Albumin 2.9 L, Globulin 4.6 H, Albumin/Globulin Ratio 0.6 L 06/25/23 14:05: Urine Color Yellow, Urine Clarity Sl. Cloudy, Urine pH 6.0, Ur Specific [place] 1.015, Urine Protein 500 H, Urine Glucose (UA) Normal, Urine Ketones 5 H, Urine Occult Blood 250 H, Urine Nitrite Positive H, Urine Bilirubin Negative, Urine Urobilinogen Normal, Ur Leukocyte Esterase 500 H, Urine RBC 25-50 SEEN, Urine WBC 25-50 SEEN, Ur Squamous Epith Cells 0-5 SEEN, Urine Bacteria 1+, Urine Mucus 0 SEEN ABG Data ABG results: ABG 06/25/23 14:29 Specimen Type ART Sample Site R Radial pH 7.49 H Bicarbonate Actual 23.8 Total CO2 25 Base Excess 0 O2 Saturation 92 L O2 % 2.5 ABG pCO2 31.5 L ABG pO2 59 L Juan Test Positive O2 Delivery Device Cannula Vent Mode Not entered Radiology Impression Chest X-Ray 06/25/23 14:10 IMPRESSION: Mild bibasilar atelectasis. Electronically Signed: Patrica Crabtree MD at 14:29 EDT , Assessment & Plan Assessment/Plan (1) Complicated urinary tract infection: PLAN: Is an 83-year-old male with multiple medical problems is got a history consistent with lung disease he is on inhalers, history of prostate cancer status post radiation therapy in the past he is on Lasix. Also takes multiple medications we will continue the medications that he will need. Currently stable. We will continue with Xarelto of course. We will need to hold his Lasix for now since he is septic, We will continue with gentle hydration appreciate input and help from the medical service and from the intensive care centers
--- NOTE | 2023-06-25 19:16 | PCM.HP.STD ---
HPI - General General Date of Admission: 06/25/23 Chief Complaint: Possible sepsis HPI Narrative MARZENA TAPIA, is a 83 M who presents to the hospital with significant confusion after cystoscopy with dilation of prostatic urethral stricture and a balloon dilation of the right ureter with lithotripsy and stent placement bilaterally. Approximately 2 weeks ago he presented to an outside hospital with a UTI and was discharged home on oral medications however he was found to have about 50,000 CFU's of Pseudomonas, unfortunately he is allergic to fluoroquinolones with throat swelling so they called him back to the hospital for IV antibiotics. When he arrived to the hospital he was found to have an elevated creatinine so he was hospitalized and urology was consulted at that time where it appears they did a cystoscopy with stent placement at that time. He was discharged and went home and was feeling well and then presented back to this hospital on Wednesday to complete intervention with lithotripsy and was discharged same day. Yesterday he started getting little bit confused and had a little bit of a fever and then today his condition worsened with increased confusion so his brought him to the hospital. Initially was discussed with urology for them to admit primarily with medicine consult however they felt that there is nothing for them to do surgically so even though this was a postoperative complication it would be better suited for medicine. Unfortunately, prior to the second intervention no UA was performed so is unclear whether or not he had cleared his previous UTI therefore we will proceed with the expectation that this is a continued pseudomonal infection. In the ER dated white and he is a little bit tachypneic and has a slight elevation in his creatinine though it is unclear as to what his baseline is because his previous lab work in this institution was in 2016, at which point he had a normal creatinine. [facility] Medical History Alcohol use Asthma Cancer Cardiology follow-up encounter COPD (chronic obstructive pulmonary disease) Easy bruising Former smoker Hepatitis High cholesterol History of echocardiogram History of edema History of stress test Hypertension Indwelling urethral catheter present Kidney stones Leg cramps On home oxygen therapy Prostate disease Restless legs Wears dentures Wears glasses Wears partial dentures Home Medications albuterol sulfate 2.5 mg/3 mL (0.083 %) solution for nebulization 2.5 mg inhalation BID PRN shortness of breath 06/21/23 [History Last Taken 06/23/23] ascorbic acid (vitamin C) 1,000 mg tablet,extended release (C Complex) 1,000 mg PO DAILY 06/21/23 [History Last Taken Unknown] budesonide 160 mcg-glycopyr 9 mcg-formot 4.8 mcg/actuation HFA inhaler (Breztri Aerosphere) 2 inh inhalation BID 06/21/23 [History Last Taken 06/23/23] cholecalciferol (vitamin D3) 125 mcg (5,000 unit) tablet (Vitamin D3) 125 mcg PO DAILY 06/21/23 [History Last Taken Unknown] coenzyme Q10 100 mg capsule (CoQ-10) 200 mg PO QHS 06/21/23 [History Last Taken Unknown] collagen,hydrolysate 500 mg-biotin 800 mcg-ascorbic acid 50 mg capsule (Collagen 1500 Plus C) 1 cap PO QHS 06/21/23 [History Last Taken Unknown] cyanocobalamin-liver extract tablet 1 tab PO DAILY 06/21/23 [History Last Taken Unknown] furosemide 20 mg tablet 20 mg PO DAILY 06/21/23 [History Last Taken Unknown] guaifenesin 600 mg tablet, extended release 12 hr (Mucus Relief ER) 1,200 mg PO DAILY 06/21/23 [History Last Taken 06/23/23 06:30] ipratropium bromide 17 mcg/actuation HFA aerosol inhaler (Atrovent HFA) 2 inh inhalation BID 06/21/23 [History Last Taken 06/23/23] krill 500 mg-omega-3 150 mg-dha 45 mg-epa 75 [id number] capsule (krill oil) 1 cap PO DAILY 06/21/23 [History Last Taken 06/20/23] losartan 100 mg tablet 100 mg PO DAILY 06/21/23 [History Last Taken 06/23/23 06:30] magnesium 100 mg tablet 400 mg PO QHS 06/21/23 [History Last Taken Unknown] montelukast 10 mg tablet 10 mg PO QHS 06/21/23 [History Last Taken Unknown] pyridoxine (vitamin B6) 100 mg tablet 100 mg PO DAILY 06/21/23 [History Last Taken Unknown] rivaroxaban 2.5 mg tablet (Xarelto) 2.5 mg PO BID 06/21/23 [History Last Taken 06/19/23] saw palmetto 450 mg capsule 450 mg PO BID 06/21/23 [History Last Taken Unknown] selenium 200 mcg tablet 200 mcg PO DAILY 06/21/23 [History Last Taken Unknown] simvastatin 5 mg tablet 5 mg PO QHS 06/21/23 [History Last Taken Unknown] zinc gluconate 50 mg tablet 50 mg PO DAILY 06/21/23 [History Last Taken Unknown] cephalexin 500 mg capsule 500 mg PO TID #15 caps 06/23/23 [Rx Last Taken Unknown] Allergy/AdvReac Type Severity Reaction Status Date / Time ciprofloxacin [From Cipro] Allergy Intermediate Rash Verified 06/25/23 13:39 lisinopril AdvReac Mild Other Verified 06/25/23 13:39 Family History (Updated 06/25/23 @ 20:[address] Felix Colbert MD) Other Heart disease Surgical History History of cardiac catheterization History of cystoscopy Hx of colonoscopy Hx of cystoscopy Hx of heart bypass surgery Hx of left cataract extraction Hx of right cataract extraction Social History household members: spouse Smoking Status: Former smoker substance use type: does not use ROS Constitutional Constitutional: Reports chills, fatigue, fever(s), malaise and weakness Eyes Eyes: Denies blurry vision ENT HEENT: Denies headache(s) or nasal discharge Cardiovascular Cardiovascular: Denies chest pain, dyspnea on exertion or syncope Respiratory/Chest Respiratory/Chest: Denies cough, shortness of breath at rest or shortness of breath with exertion Gastrointestinal Gastrointestinal: Denies constipation, diarrhea, nausea or vomiting Genitourinary Genitourinary: Denies dysuria Neurologic Neurologic: Reports confusion; Denies focal weakness, numbness or tremor(s) Psychiatric Psychiatric: Denies anxiety or depression Vital Signs Vital Signs Vital Signs: 06/25/23 13:35 06/25/23 13:56 06/25/23 13:57 Temperature 102.1 F H Temperature Source Oral Pulse Rate 92 Respiratory Rate 31 H Respiratory Effort Short of Breath Labored Respiratory Depth Respiratory Pattern Tachypnea Blood Pressure 132/61 H Blood Pressure Mean 84 Blood Pressure Source Blood Pressure Position Blood Pressure Location Pulse Ox 94 94 Oxygen Delivery Method Non-Rebreather @ 15L/min Nasal Cannula Oxygen Flow Rate (L/min) 2 2 06/25/23 14:32 06/25/23 14:53 06/25/23 15:16 Temperature 99.5 F H 98.5 F Temperature Source Oral Pulse Rate 85 81 Respiratory Rate 32 H 26 H Respiratory Effort Respiratory Depth Respiratory Pattern Blood Pressure 129/63 H 119/59 L Blood Pressure Mean 85 79 Blood Pressure Source Blood Pressure Position Blood Pressure Location Pulse Ox 93 93 93 Oxygen Delivery Method Nasal Cannula Nasal Cannula Oxygen Flow Rate (L/min) 2 2 06/25/23 15:56 06/25/23 15:56 06/25/23 16:54 Temperature 98.5 F Temperature Source Oral Pulse Rate 76 81 80 Respiratory Rate 34 H 31 H 30 H Respiratory Effort Respiratory Depth Respiratory Pattern Blood Pressure 120/55 L 120/55 L 116/59 L Blood Pressure Mean 76 76 78 Blood Pressure Source Blood Pressure Position Blood Pressure Location Pulse Ox 96 95 96 Oxygen Delivery Method Nasal Cannula Nasal Cannula Nasal Cannula Oxygen Flow Rate (L/min) 2 2 2 06/25/23 17:15 06/25/23 17:31 06/25/23 17:30 Temperature 100.3 F H Temperature Source Temporal Pulse Rate 82 77 Respiratory Rate 31 H 31 H Respiratory Effort Respiratory Depth Respiratory Pattern Blood Pressure 126/60 H 121/55 H Blood Pressure Mean 82 77 Blood Pressure Source Monitor Monitor Blood Pressure Position Semi-Fowlers Semi-Fowlers Blood Pressure Location Left Arm Left Arm Pulse Ox 96 95 96 Oxygen Delivery Method Nasal Cannula Nasal Cannula Nasal Cannula Oxygen Flow Rate (L/min) 2 2 2 06/25/23 17:45 06/25/23 18:00 06/25/23 17:30 Temperature Temperature Source Pulse Rate 78 77 Respiratory Rate 30 H 30 H Respiratory Effort Normal Non-Labored Respiratory Depth Normal Respiratory Pattern Normal Blood Pressure 120/56 L 105/57 L Blood Pressure Mean 77 73 Blood Pressure Source Monitor Monitor Blood Pressure Position Semi-Fowlers Semi-Fowlers Blood Pressure Location Left Arm Left Arm Pulse Ox 96 97 Oxygen Delivery Method Nasal Cannula Nasal Cannula Nasal Cannula Oxygen Flow Rate (L/min) 2 2 2 Weight Weight: 210 lb Body Mass Index (BMI) 28.5 Physical Exam Narrative General: Alert, Oriented x1, Cooperative, No apparent distress HEENT: Atraumatic, PERRLA, EOMI, Normocephalic Oral: Dry mucosa Neck: Supple, No JVD Lungs: Diminished, Normal air movement, No rhonchi, No wheeze, No rales Cardiovascular: Regular rate, Regular Rhythm, Normal S1, Normal S2, No murmurs Abdomen: Soft, Non Tender, Non-Distended, No Hepato-splenomegaly, no CVA tenderness Extremities: No edema, Capillary Refill Less than 3 Seconds Skin: No rashes, No breakdown Musculoskeletal: No Tenderness to Palpation of Joints or Extremities Neurological: Moves all extremities, no focal weakness, sensory exam intact to light touch and pain Psych/Mental Status: Normal Affect, Appropriate Results Lab / Micro Data 06/25/23 13:40 06/25/23 13:40 Labs: Laboratory Results - last 24 hr 06/25/23 13:40: WBC 18.6 H, RBC 4.36 L, Hgb 11.3 L, Hct 37.4 L, MCV 85.8, MCH 25.9 L, MCHC 30.2 L, RDW Std Deviation 56.4 H, RDW Coeff of Luiz 18.1 H, Plt Count 264, MPV 9.7, Immature Gran % (Auto) 3.900 H, Neut % (Auto) 80.2 H, Lymph % (Auto) 4.6 L, [place] % (Auto) 11.1 H, Eos % (Auto) 0.0, Baso % (Auto) 0.2, Absolute Neuts (auto) 14.9 H, Absolute Lymphs (auto) 0.86, Nucleated RBC % 0, Diff Path Review January, PT 16.5 H, INR 1.3, APTT 43.9 H, Sodium 138, Potassium 4.4, Chloride 104, Carbon Dioxide 23.0, Anion Gap 11, BUN 42 H, Creatinine 2.21 H, Estim Creat Clear Calc 28.29, Est GFR (MDRD) Af Amer 37 L, Est GFR (MDRD) Non-Af 30 L, BUN/Creatinine Ratio 19.0, Glucose 203 H, Lactic Acid 2.3 H*, Calcium 8.8, Total Bilirubin 0.70, AST 45 H, ALT 50, Alkaline Phosphatase 82, Total Protein 7.5, Albumin 2.9 L, Globulin 4.6 H, Albumin/Globulin Ratio 0.6 L 06/25/23 14:05: Urine Color Yellow, Urine Clarity Sl. Cloudy, Urine pH 6.0, Ur Specific [place] 1.015, Urine Protein 500 H, Urine Glucose (UA) Normal, Urine Ketones 5 H, Urine Occult Blood 250 H, Urine Nitrite Positive H, Urine Bilirubin Negative, Urine Urobilinogen Normal, Ur Leukocyte Esterase 500 H, Urine RBC 25-50 SEEN, Urine WBC 25-50 SEEN, Ur Squamous Epith Cells 0-5 SEEN, Urine Bacteria 1+, Urine Mucus 0 SEEN ABG Data ABG results: ABG 06/25/23 14:29 Specimen Type ART Sample Site R Radial pH 7.49 H Bicarbonate Actual 23.8 Total CO2 25 Base Excess 0 O2 Saturation 92 L O2 % 2.5 ABG pCO2 31.5 L ABG pO2 59 L Juan Test Positive O2 Delivery Device Cannula Vent Mode Not entered Radiology Impression Chest X-Ray 06/25/23 14:10 IMPRESSION: Mild bibasilar atelectasis. Electronically Signed: Patrica Crabtree MD at 14:29 EDT , Assessment & Plan Assessment/Plan (1) Severe sepsis with acute organ dysfunction: (2) Complicated urinary tract infection: PLAN: Plan 1. Severe sepsis secondary to postprocedural UTI/RENEE ? 2 days ago he had urological intervention and within 24 hours became ill and appears to have developed a UTI ? His previous urine cultures at the outside hospital grew Pseudomonas and at that time he was placed on cefepime ? We will continue with cefepime however given his RENEE will hold his losartan and Lasix and placed on IV fluids ? After discussion with urology they felt that there is no intervention to be performed therefore we will hold off on consulting them ? Previous creatinines at the outside hospital on 06/16 was 1.33 and on 06/17 was 1.42, currently on admission he is 2.21 2. HTN/HLD/CAD status post CABG/pulmonary hypertension ? Unclear as to why he is on Xarelto 2.5 mg p.o. twice daily however since there is no planned surgical intervention we will continue ? Given his RENEE will hold his losartan and Lasix and continue the fluids ? He does have a history of mild pulmonary hypertension per outside medical records but cannot find an echo to demonstrate EF or if he has a cardiomyopathy of some sort likely ischemic secondary to his CABG but unclear if there is a reduced EF, therefore will be cautious with his fluids 3. COPD ? Does not appear to currently be in exacerbation ? Can resume his home inhalers DVT: Xarelto Medicine will assume primary care of the patient Sepsis Attestation Sepsis Attestation: Agree w/Sepsis Possible Source of Sepsis: Genitourinary Sepsis Organ Dysfunction Criteria Present: Creatinine > 2.0 mg/dL, Lactic Acid > 2 mmol/L and New/Unexplained change in mental status Charges/Coding Visit Charges Inpatient E&M: 93397 Init Hosp L3
[2023-06-25 19:42] LABS: Lactic Acid 1.5 mmol/L (0.4-1.9)
[2023-06-25] MEDS: Lactated Ringers 1,000 ML 125 ML IV (19:50)
[2023-06-25] MEDS: Ipratropium/Albuterol Sulfate 3 ML AMPUL.NEB INHALATION (20:55)
[2023-06-25] MEDS: Budesonide Respules 0.5 MG/2 ML AMPUL.NEB. INHALATION (20:55)
[2023-06-25] MEDS: Docusate Sodium 100 MG Capsule 200 MG PO (21:30)
[2023-06-25] MEDS: Atorvastatin Calcium 10 MG Tablet 5 MG PO (21:30)
[2023-06-25] MEDS: Magnesium Chloride 64 MG Delay Rel.Tablet 128 MG PO (21:30)
[2023-06-25] MEDS: Montelukast 10 MG Tablet PO (21:30)
[2023-06-25] MEDS: Cefepime HCl 1 GM in 0.9% Normal Saline (50mL MB+) 50 ML IV (21:31)
[2023-06-25] MEDS: Rivaroxaban 2.5 MG Tablet PO (21:31)
--- NOTE | 2023-06-25 22:13 | NURSING ---
Transported patient down to CT.
[2023-06-25] MEDS: Acetaminophen 325 MG Tablet PO (22:38)
[2023-06-26] VITALS (19 sets, daily range): BP systolic 103–146; BP diastolic 50–84; PULSE 60–85; RESP 17–27; TEMP 36.7–38; O2SAT 92–98; BMI 28.8
[2023-06-26 04:35] LABS: Anion Gap 6 (5-15); BUN 42 mg/dL (7-18); BUN/Creat Ratio 23.1 RATIO (10-20); Calcium,Total 8.3 mg/dL (8.5-10.1); Chloride 108 mmol/L (98-107); Creatinine, Serum 1.82 mg/dL (0.70-1.30); EST Glomerular Filtration Rate 38 mL/min (>60); Est Glom Filt Rate - Afr Amer 46 mL/min (>60); Estimated Creatinine Clearance 34.35 ml/min; Glucose 154 mg/dL (74-106); Potassium 4.2 mmol/L (3.5-5.1); Sodium Level 141 mmol/L (136-145)
[2023-06-26 05:07] LABS: Absolute Neutrophil Count 10.6 X10^3/uL (2.0-7.7); Basophil# 0.03 X10^3/uL; Basophil% 0.2 % (0-1); Hematocrit 32.3 % (40-54); Hemoglobin 9.6 g/dL (13.0-16.5); Lymphocyte % 4.5 % (19-41); Mean Corp Hgb Conc 29.7 g/dL (32-36); Mean Corpuscular Hgb 26.3 pg (27.0-32.0); Mean Corpuscular Volume 88.5 fL (80-94); Mean Platelet Vol. 10.1 fl (6.2-12.0); Monocyte# 1.76 X10^3/uL; Monocyte% 13.3 % (0-10); NRBC Flagged by Analyzer 0 % (0-5); Neutrophil # 10.59 X10^3/uL (2.7-7.7); Neutrophil % 80.1 % (47-70); POSITIVE DIFFERENTIAL YES; Platelet Count 189 K/mm3 (150-450); RBC Distribution Width CV 18.3 % (11.6-14.6); RBC Distribution Width SD 59.3 fl (35.1-43.9); Red Blood Count 3.65 M/mm3 (4.6-6.2); White Blood Count 13.2 K/mm3 (4.4-11.0)
[2023-06-26 06:03] LABS: Differential Indicated SCAN CRITERIA MET
[2023-06-26 06:04] LABS: Differential Comment SCANNED
--- NOTE | 2023-06-26 06:13 | PCM.PN.GU ---
Subjective Subjective Patient stable overnight, vital signs stable, Only complaint is the pain from the catheter lower abdominal pain which I think is from the catheter and the stent CT scan done with no findings Objective Data Objective Data Vital Signs: Vital Signs Temp Pulse Resp BP Pulse Ox O2 Del Method O2 Flow Rate 98.1 F 65 25 H 108/52 L 97 Nasal Cannula 3 06/26/23 02:00 06/26/23 05:00 06/26/23 05:00 06/26/23 05:00 06/26/23 05:00 06/26/23 05:00 06/26/23 05:00 Oxygen Flow Rate (L/min) 3 Oxygen Delivery Method Nasal Cannula Weight: 96.4 kg Body Mass Index (BMI) 28.8 Intake & Output: Intake and Output for Last 24 Hours 06/24/23 06/25/23 06/26/23 23:59 23:59 23:59 Intake Total 480 / 580 100 / 100 Output Total 250 / 650 700 / 700 Balance 230 / -70 -600 / -600 Lab / Micro Data 06/26/23 05:03 06/26/23 04:10 Labs: Laboratory Results - last 24 hr 06/25/23 13:40: WBC 18.6 H, RBC 4.36 L, Hgb 11.3 L, Hct 37.4 L, MCV 85.8, MCH 25.9 L, MCHC 30.2 L, RDW Std Deviation 56.4 H, RDW Coeff of Luiz 18.1 H, Plt Count 264, MPV 9.7, Immature Gran % (Auto) 3.900 H, Neut % (Auto) 80.2 H, Lymph % (Auto) 4.6 L, [place] % (Auto) 11.1 H, Eos % (Auto) 0.0, Baso % (Auto) 0.2, Absolute Neuts (auto) 14.9 H, Absolute Lymphs (auto) 0.86, Nucleated RBC % 0, Diff Path Review January, PT 16.5 H, INR 1.3, APTT 43.9 H, Sodium 138, Potassium 4.4, Chloride 104, Carbon Dioxide 23.0, Anion Gap 11, BUN 42 H, Creatinine 2.21 H, Estim Creat Clear Calc 28.29, Est GFR (MDRD) Af Amer 37 L, Est GFR (MDRD) Non-Af 30 L, BUN/Creatinine Ratio 19.0, Glucose 203 H, Lactic Acid 2.3 H*, Calcium 8.8, Total Bilirubin 0.70, AST 45 H, ALT 50, Alkaline Phosphatase 82, Total Protein 7.5, Albumin 2.9 L, Globulin 4.6 H, Albumin/Globulin Ratio 0.6 L 06/25/23 14:05: Urine Color Yellow, Urine Clarity Sl. Cloudy, Urine pH 6.0, Ur Specific [place] 1.015, Urine Protein 500 H, Urine Glucose (UA) Normal, Urine Ketones 5 H, Urine Occult Blood 250 H, Urine Nitrite Positive H, Urine Bilirubin Negative, Urine Urobilinogen Normal, Ur Leukocyte Esterase 500 H, Urine RBC 25-50 SEEN, Urine WBC 25-50 SEEN, Ur Squamous Epith Cells 0-5 SEEN, Urine Bacteria 1+, Urine Mucus 0 SEEN 06/25/23 19:09: Lactic Acid 1.5 06/26/23 04:10: WBC Cancelled, Corrected WBC Cancelled, RBC Cancelled, Hgb Cancelled, Hct Cancelled, MCV Cancelled, MCH Cancelled, MCHC Cancelled, RDW Std Deviation Cancelled, RDW Coeff of Luiz Cancelled, Plt Count Cancelled, MPV Cancelled, Diff Path Review Cancelled, Sodium 141, Potassium 4.2, Chloride 108 H, Carbon Dioxide 27.0, Anion Gap 6, BUN 42 H, Creatinine 1.82 H, Estim Creat Clear Calc 34.35, Est GFR (MDRD) Af Amer 46 L, Est GFR (MDRD) Non-Af 38 L, BUN/Creatinine Ratio 23.1 H, Glucose 154 H, Calcium 8.3 L 06/26/23 05:03: WBC 13.2 H, RBC 3.65 L, Hgb 9.6 L, Hct 32.3 L, MCV 88.5, MCH 26.3 L, MCHC 29.7 L, RDW Std Deviation 59.3 H, RDW Coeff of Luiz 18.3 H, Plt Count 189, MPV 10.1, Immature Gran % (Auto) 1.900 H, Neut % (Auto) 80.1 H, Lymph % (Auto) 4.5 L, [place] % (Auto) 13.3 H, Eos % (Auto) 0.0, Baso % (Auto) 0.2, Absolute Neuts (auto) 10.6 H, Absolute Lymphs (auto) 0.60 L, Nucleated RBC % 0, Differential Comment SCANNED, Diff Path Review May foll ABG Data ABG results: ABG 06/25/23 14:29 Specimen Type ART Sample Site R Radial pH 7.49 H Bicarbonate Actual 23.8 Total CO2 25 Base Excess 0 O2 Saturation 92 L O2 % 2.5 ABG pCO2 31.5 L ABG pO2 59 L Juan Test Positive O2 Delivery Device Cannula Vent Mode Not entered Radiography Diagnostic Testing: Radiology Impression Chest X-Ray 06/25/23 14:10 IMPRESSION: Mild bibasilar atelectasis. Electronically Signed: Patrica Crabtree MD at 14:29 EDT , Abdomen/Pelvis CT 06/25/23 18:57 IMPRESSION: Bilateral renal cysts. Bilateral ureteral stents are noted. Periureteral stranding along the right ureter. Wall thickening of urinary bladder. This may be inflammatory or infectious in etiology. Hepatic hypoattenuated nodule may be cystic in nature, similar to previous study Colonic diverticulosis. Bilateral basilar consolidations/atelectasis Electronically Signed: Roshan Arguelles DO at 20:05 EDT , Physical Exam Const alert Constitutional Narrative: Confusion is improving he is interactive and talking had to be oriented to place General Appearance: cooperative HEENT normocephalic, head/scalp atraumatic, EAC's normal and TM's normal bilaterally Eyes PERRL and EOMs intact bilaterally Pupil: sluggish Neck no lymphadenopathy, supple and no JVD General: trachea midline Lymph Lymphatic: no lymphadenopathy noted, lymphedema and lymphadenopathy Resp normal respiratory effort, normal air movement and clear to auscultation bilaterally Cardio regular rate, regular rhythm and peripheral pulses 2+ throughout GI soft to palpation, non-tender and non-distended Extremity normal capillary refill and no clubbing, cyanosis or edema General Extremity: no tenderness to palpation of joints or extremities Skin no rashes or lesions noted General Skin Exam: turgor normal Lesions: no lesions Rashes: no rashes Neuro CN's II-XII intact bilaterally Speech: speech normal Motor Exam: strength 5/5 throughout; Negative for general weakness Psych thought process normal, cooperative and affect normal Appearance: appropriate Assessment & Plan Assessment/Plan (1) Complicated urinary tract infection: PLAN: 83-year-old male with multiple medical problems probably had an infected stone underwent ureteroscopy and laser lithotripsy, presented with sepsis picture and confusion continue with IV antibiotics patient is improving he needs to get out of bed needs to ambulate probably safe to be moved to stepdown. Appreciate assistance from medical service and for intensive care service
--- NOTE | 2023-06-26 07:12 | PCM.PN.HOSP ---
Reason for Visit Reason for Visit: Diagnoses Sepsis, unspecified organism (06/25/23) Urinary tract infection, site not specified (06/25/23) Severe sepsis without septic shock (06/25/23) Subjective Subjective Feels better. Objective Data Objective Data Vital Signs: Vital Signs Temp Pulse Resp BP Pulse Ox O2 Del Method O2 Flow Rate 36.7 C 67 26 H 109/56 L 98 Nasal Cannula 3 06/26/23 06:00 06/26/23 06:00 06/26/23 06:00 06/26/23 06:00 06/26/23 06:00 06/26/23 06:00 06/26/23 06:00 Oxygen Flow Rate (L/min) 3 Oxygen Delivery Method Nasal Cannula Weight: 96.4 kg Body Mass Index (BMI) 28.8 Intake & Output: Intake and Output for Last 24 Hours 06/24/23 06/25/23 06/26/23 23:59 23:59 23:59 Intake Total 480 / 580 450 / 450 Output Total 250 / 650 700 / 700 Balance 230 / -70 -250 / -250 Lab / Micro Data 06/26/23 05:03 06/26/23 04:10 Labs: Laboratory Results - last 24 hr 06/25/23 13:40: WBC 18.6 H, RBC 4.36 L, Hgb 11.3 L, Hct 37.4 L, MCV 85.8, MCH 25.9 L, MCHC 30.2 L, RDW Std Deviation 56.4 H, RDW Coeff of Luiz 18.1 H, Plt Count 264, MPV 9.7, Immature Gran % (Auto) 3.900 H, Neut % (Auto) 80.2 H, Lymph % (Auto) 4.6 L, [place] % (Auto) 11.1 H, Eos % (Auto) 0.0, Baso % (Auto) 0.2, Absolute Neuts (auto) 14.9 H, Absolute Lymphs (auto) 0.86, Nucleated RBC % 0, Diff Path Review January, PT 16.5 H, INR 1.3, APTT 43.9 H, Sodium 138, Potassium 4.4, Chloride 104, Carbon Dioxide 23.0, Anion Gap 11, BUN 42 H, Creatinine 2.21 H, Estim Creat Clear Calc 28.29, Est GFR (MDRD) Af Amer 37 L, Est GFR (MDRD) Non-Af 30 L, BUN/Creatinine Ratio 19.0, Glucose 203 H, Lactic Acid 2.3 H*, Calcium 8.8, Total Bilirubin 0.70, AST 45 H, ALT 50, Alkaline Phosphatase 82, Total Protein 7.5, Albumin 2.9 L, Globulin 4.6 H, Albumin/Globulin Ratio 0.6 L 06/25/23 14:05: Urine Color Yellow, Urine Clarity Sl. Cloudy, Urine pH 6.0, Ur Specific [place] 1.015, Urine Protein 500 H, Urine Glucose (UA) Normal, Urine Ketones 5 H, Urine Occult Blood 250 H, Urine Nitrite Positive H, Urine Bilirubin Negative, Urine Urobilinogen Normal, Ur Leukocyte Esterase 500 H, Urine RBC 25-50 SEEN, Urine WBC 25-50 SEEN, Ur Squamous Epith Cells 0-5 SEEN, Urine Bacteria 1+, Urine Mucus 0 SEEN 06/25/23 19:09: Lactic Acid 1.5 06/26/23 04:10: WBC Cancelled, Corrected WBC Cancelled, RBC Cancelled, Hgb Cancelled, Hct Cancelled, MCV Cancelled, MCH Cancelled, MCHC Cancelled, RDW Std Deviation Cancelled, RDW Coeff of Luiz Cancelled, Plt Count Cancelled, MPV Cancelled, Diff Path Review Cancelled, Sodium 141, Potassium 4.2, Chloride 108 H, Carbon Dioxide 27.0, Anion Gap 6, BUN 42 H, Creatinine 1.82 H, Estim Creat Clear Calc 34.35, Est GFR (MDRD) Af Amer 46 L, Est GFR (MDRD) Non-Af 38 L, BUN/Creatinine Ratio 23.1 H, Glucose 154 H, Calcium 8.3 L 06/26/23 05:03: WBC 13.2 H, RBC 3.65 L, Hgb 9.6 L, Hct 32.3 L, MCV 88.5, MCH 26.3 L, MCHC 29.7 L, RDW Std Deviation 59.3 H, RDW Coeff of Luiz 18.3 H, Plt Count 189, MPV 10.1, Immature Gran % (Auto) 1.900 H, Neut % (Auto) 80.1 H, Lymph % (Auto) 4.5 L, [place] % (Auto) 13.3 H, Eos % (Auto) 0.0, Baso % (Auto) 0.2, Absolute Neuts (auto) 10.6 H, Absolute Lymphs (auto) 0.60 L, Nucleated RBC % 0, Differential Comment SCANNED, Diff Path Review May foll ABG Data ABG results: ABG 06/25/23 14:29 Specimen Type ART Sample Site R Radial pH 7.49 H Bicarbonate Actual 23.8 Total CO2 25 Base Excess 0 O2 Saturation 92 L O2 % 2.5 ABG pCO2 31.5 L ABG pO2 59 L Juan Test Positive O2 Delivery Device Cannula Vent Mode Not entered Radiography Diagnostic Testing: Radiology Impression Chest X-Ray 06/25/23 14:10 IMPRESSION: Mild bibasilar atelectasis. Electronically Signed: Patrica Crabtree MD at 14:29 EDT , Abdomen/Pelvis CT 06/25/23 18:57 IMPRESSION: Bilateral renal cysts. Bilateral ureteral stents are noted. Periureteral stranding along the right ureter. Wall thickening of urinary bladder. This may be inflammatory or infectious in etiology. Hepatic hypoattenuated nodule may be cystic in nature, similar to previous study Colonic diverticulosis. Bilateral basilar consolidations/atelectasis Electronically Signed: Roshan Arguelles DO at 20:05 EDT , Physical Exam Const alert and no apparent distress HEENT head/scalp atraumatic and moist oral mucous membranes Resp normal respiratory effort, no retractions, no use of accessory muscles and clear to auscultation bilaterally Cardio regular rate, regular rhythm, S1 normal heart sound and S2 normal heart sound GI normal to inspection, nondistended, normoactive bowel sounds, soft to palpation and non-tender Extremity normal to inspection and no clubbing, cyanosis or edema Assessment & Plan Assessment/Plan (1) Sepsis: QUALIFIERS: Sepsis acute organ dysfunction status: with acute organ dysfunction Sepsis type: Pseudomonas Severe sepsis acute organ dysfunction type: encephalopathy Severe sepsis shock status: without septic shock Qualified Code(s): A41.52 - Sepsis due to Pseudomonas; R65.20 - Severe sepsis without septic shock; G93.41 - Metabolic encephalopathy PLAN: POA qSOFA 2: for tachypnea and encephalopathy SIRS /: WBC 18.6, temp 38.8, RR 28, HR 92 Organ disfunction with encepahlopathy and RENEE 2/2 UTI BCx and UCx pending. Previous cultures grew out pseudomonas. ABX with cefepime. (2) Complicated urinary tract infection: PLAN: Onset unclear, but concerning may have present earlier at OSH. Unclear if was related with infected stone/stent, etc. On Cefepime. Previous cultures grew out pseudomonas Continue cefepime. (3) RENEE (acute kidney injury): PLAN: 2/2 sepsis, medications, dehydration Furosemide and losartan held Improving with IVF (4) Ureteral calculi: PLAN: Pt underwent cystoscopy, dilation of uretheral stricture, balloon dilation of bilateral ureter w ureteroscopy laser lithotripsy and stent placements on 06/[address] Morocho. Prior, had dilation of prostatic urethera with catheter placement. following PLAN: Plan Chronic conditions HTN: stable. Hold losartan and furosemide given RENEE for now. HLD: continue statin CAD: stable COPD: continue budesonide, PRN BDs pulmonary HTN: unclear type and severity. chronic anticoagulation: unclear reason for it DVT prophylaxis: not indicated as he is rivaroxaban. Charges/Coding Visit Charges Inpatient E&M: 57565 Subs Hosp L2
[2023-06-26] MEDS: Budesonide Respules 0.5 MG/2 ML AMPUL.NEB. INHALATION ×2 (07:20→19:41)
[2023-06-26] MEDS: Ipratropium/Albuterol Sulfate 3 ML AMPUL.NEB INHALATION ×2 (07:20→19:41)
--- NOTE | 2023-06-26 07:26 | EX.PCM.CONCC ---
Assessment & Plan Assessment/Plan (1) Infectious encephalopathy: (2) Sepsis: QUALIFIERS: Sepsis acute organ dysfunction status: with acute organ dysfunction Sepsis type: Pseudomonas Severe sepsis acute organ dysfunction type: encephalopathy Severe sepsis shock status: without septic shock Qualified Code(s): A41.52 - Sepsis due to Pseudomonas; R65.20 - Severe sepsis without septic shock; G93.41 - Metabolic encephalopathy (3) RENEE (acute kidney injury): PLAN: Plan RECOMMENDATIONS: 1. Continue empiric antibiotics pending cultures 2. Add p.o. pain control 3. Encourage incentive spirometer. Wean oxygen as tolerated 4. Potential transfer from the intensive care unit later today 5. Continue with delirium protocol IMPRESSIONS: 1. Sepsis secondary to UTI Patient appears to have had bacteremia following instrumentation with urologic procedure. Patient is improving on the current therapy. The patient continues to improve through the day, can likely go to the floor. Will likely require 24 to 48 hours of IV antibiotics pending cultures. 2. Metabolic encephalopathy secondary to problem #1 Patient appears to be improving at this time. Patient is not having significant behavioral issues, but would be at risk for development of delirium given comorbidities. Continue with delirium protocol. 3. Acute kidney injury secondary to problem #1 Patient with significant increase in creatinine on presentation. Unclear baseline as previous labs were sometime ago. Will obtain outside records for comparison. Patient does appear to be responding well to blood pressure support 4. Hypertension/hyperlipidemia/CAD status post CABG/pulmonary hypertension/COPD Complicates care, management, recovery and prognosis. Agree with holding losartan given acute kidney injury. Likely restart antihypertensives tomorrow. Would be cautious with Xarelto therapy given patient's renal issues. Eliquis may be a better option, but may have financial reasons for Xarelto. HPI Consult Data Date of Consult: 06/26/23 HPI Narrative Reason for Consultation: Sepsis HPI Narrative: MARZENA TAPIA is an 83 M, with past medical history listed below, who presents to [facility] on 06/25/2023 secondary to change in mental status and weakness. Patient had undergone a lithotripsy and TURP by Dr. العلي 2 days prior to presentation. Patient was placed on cephalexin, but presented to the emergency room with generalized weakness and having to slide to the floor. Patient reportedly has had poor p.o. intake since his procedure and became more somnolent. Patient reportedly does wear supplemental oxygen with sleep, but is not on a CPAP or BiPAP machine. Patient does have a chronic indwelling Cervantes and patient's reported that he was compliant with his antibiotic therapy. In the ER, patient had a temperature of 102.1 ?F with a blood pressure of 132/61. Patient initially was placed on a nonrebreather, but was weaned to a nasal cannula 2 L/min. Patient was significantly tachypneic at 32 breaths/min. Laboratory data showed a white blood cell count of 18.6, hemoglobin of 11.3 and platelets of 264. INR was normal at 1.3, but creatinine was elevated at 2.21 with a potassium of 4. Patient's initial lactate was 2.3 and UA was suggestive of a urinary tract infection. An ABG showed a respiratory alkalosis with increased AA gradient. Chest x-ray showed left-sided atelectasis with evidence of a hiatal hernia. EKG was relatively unremarkable. Patient was initiated on the sepsis protocol and admitted to the intensive care unit for further evaluation. Since admission to the intensive care unit, patient has remained hemodynamically stable. Patient subjectively feels unchanged compared to previous. Patient is reporting significant pain, but is only received Tylenol overnight. Patient does have recollection of coming to the ER, but is not aware of what led to him being sent to the ER. Patient is aware of his surgery earlier in the week. Patient is not reporting any nausea or vomiting. Patient is having some suprapubic pain, but no dyspnea. Patient is on 3 L/min, but has not been taken out of the bed yet. Review of systems otherwise negative from a constitutional, HEENT, respiratory, cardiovascular, GI, genitourinary, musculoskeletal, skin, neurologic, psychiatric and hematologic system unless stated above. [facility] Medical History Alcohol use Asthma Cancer Cardiology follow-up encounter COPD (chronic obstructive pulmonary disease) Easy bruising Former smoker Hepatitis High cholesterol History of echocardiogram History of edema History of stress test Hypertension Indwelling urethral catheter present Kidney stones Leg cramps On home oxygen therapy Prostate disease Restless legs Ureteral calculi Wears dentures Wears glasses Wears partial dentures Home Medications albuterol sulfate 2.5 mg/3 mL (0.083 %) solution for nebulization 2.5 mg inhalation BID PRN shortness of breath 06/21/23 [History Last Taken 06/23/23] ascorbic acid (vitamin C) 1,000 mg tablet,extended release (C Complex) 1,000 mg PO DAILY 06/21/23 [History Last Taken Unknown] budesonide 160 mcg-glycopyr 9 mcg-formot 4.8 mcg/actuation HFA inhaler (Breztri Aerosphere) 2 inh inhalation BID 06/21/23 [History Last Taken 06/23/23] cholecalciferol (vitamin D3) 125 mcg (5,000 unit) tablet (Vitamin D3) 125 mcg PO DAILY 06/21/23 [History Last Taken Unknown] coenzyme Q10 100 mg capsule (CoQ-10) 200 mg PO QHS 06/21/23 [History Last Taken Unknown] collagen,hydrolysate 500 mg-biotin 800 mcg-ascorbic acid 50 mg capsule (Collagen 1500 Plus C) 1 cap PO QHS 06/21/23 [History Last Taken Unknown] cyanocobalamin-liver extract tablet 1 tab PO DAILY 06/21/23 [History Last Taken Unknown] furosemide 20 mg tablet 20 mg PO DAILY 06/21/23 [History Last Taken Unknown] guaifenesin 600 mg tablet, extended release 12 hr (Mucus Relief ER) 1,200 mg PO DAILY 06/21/23 [History Last Taken 06/23/23 06:30] ipratropium bromide 17 mcg/actuation HFA aerosol inhaler (Atrovent HFA) 2 inh inhalation BID 06/21/23 [History Last Taken 06/23/23] krill 500 mg-omega-3 150 mg-dha 45 mg-epa 75 [id number] capsule (krill oil) 1 cap PO DAILY 06/21/23 [History Last Taken 06/20/23] losartan 100 mg tablet 100 mg PO DAILY 06/21/23 [History Last Taken 06/23/23 06:30] magnesium 100 mg tablet 400 mg PO QHS 06/21/23 [History Last Taken Unknown] montelukast 10 mg tablet 10 mg PO QHS 06/21/23 [History Last Taken Unknown] pyridoxine (vitamin B6) 100 mg tablet 100 mg PO DAILY 06/21/23 [History Last Taken Unknown] rivaroxaban 2.5 mg tablet (Xarelto) 2.5 mg PO BID 06/21/23 [History Last Taken 06/19/23] saw palmetto 450 mg capsule 450 mg PO BID 06/21/23 [History Last Taken Unknown] selenium 200 mcg tablet 200 mcg PO DAILY 06/21/23 [History Last Taken Unknown] simvastatin 5 mg tablet 5 mg PO QHS 06/21/23 [History Last Taken Unknown] zinc gluconate 50 mg tablet 50 mg PO DAILY 06/21/23 [History Last Taken Unknown] cephalexin 500 mg capsule 500 mg PO TID #15 caps 06/23/23 [Rx Last Taken Unknown] Allergy/AdvReac Type Severity Reaction Status Date / Time ciprofloxacin [From Cipro] Allergy Intermediate Rash Verified 06/25/23 13:39 lisinopril AdvReac Mild Other Verified 06/25/23 13:39 Family History Other Heart disease Surgical History History of cardiac catheterization History of cystoscopy Hx of colonoscopy Hx of cystoscopy Hx of heart bypass surgery Hx of left cataract extraction Hx of right cataract extraction Social History household members: spouse Smoking Status: Former smoker substance use type: does not use ROS ROS Narrative See HPI Physical Exam Const alert and oriented x3 Constitutional Narrative: Slightly slow to respond, but appropriate General Appearance: cooperative HEENT normocephalic and head/scalp atraumatic Eyes PERRL and EOMs intact bilaterally Eyes Narrative: Slight scleral injection Neck no lymphadenopathy, supple and no JVD General: trachea midline Lymph Lymphatic: no lymphadenopathy noted, lymphedema and lymphadenopathy Resp normal respiratory effort, normal air movement and clear to auscultation bilaterally Cardio regular rate, regular rhythm, S1 normal heart sound and S2 normal heart sound GI soft to palpation and non-distended Palpation: tender periumbilical Extremity normal capillary refill and no clubbing, cyanosis or edema General Extremity: no tenderness to palpation of joints or extremities Skin no rashes or lesions noted Neuro oriented x3, CN's II-XII intact bilaterally and moves all extremities Speech: speech normal Motor Exam: strength 5/5 throughout Psych cooperative and affect normal Appearance: appropriate Medical Records Data Attestation: I reviewed the patient's medical records Medical records narrative: Patient's creatinine was 2.21 on presentation. Last available creatinine was from 2016 at 1.15. Patient does not have any PFT or echocardiogram available in the electronic medical record Lab / Micro Data Attestation: I reviewed the patient's lab results. 06/26/23 05:03 06/26/23 04:10 Labs: Laboratory Results - last 24 hr 06/25/23 13:40: WBC 18.6 H, RBC 4.36 L, Hgb 11.3 L, Hct 37.4 L, MCV 85.8, MCH 25.9 L, MCHC 30.2 L, RDW Std Deviation 56.4 H, RDW Coeff of Luiz 18.1 H, Plt Count 264, MPV 9.7, Immature Gran % (Auto) 3.900 H, Neut % (Auto) 80.2 H, Lymph % (Auto) 4.6 L, [place] % (Auto) 11.1 H, Eos % (Auto) 0.0, Baso % (Auto) 0.2, Absolute Neuts (auto) 14.9 H, Absolute Lymphs (auto) 0.86, Nucleated RBC % 0, Diff Path Review January, PT 16.5 H, INR 1.3, APTT 43.9 H, Sodium 138, Potassium 4.4, Chloride 104, Carbon Dioxide 23.0, Anion Gap 11, BUN 42 H, Creatinine 2.21 H, Estim Creat Clear Calc 28.29, Est GFR (MDRD) Af Amer 37 L, Est GFR (MDRD) Non-Af 30 L, BUN/Creatinine Ratio 19.0, Glucose 203 H, Lactic Acid 2.3 H*, Calcium 8.8, Total Bilirubin 0.70, AST 45 H, ALT 50, Alkaline Phosphatase 82, Total Protein 7.5, Albumin 2.9 L, Globulin 4.6 H, Albumin/Globulin Ratio 0.6 L 06/25/23 14:05: Urine Color Yellow, Urine Clarity Sl. Cloudy, Urine pH 6.0, Ur Specific [place] 1.015, Urine Protein 500 H, Urine Glucose (UA) Normal, Urine Ketones 5 H, Urine Occult Blood 250 H, Urine Nitrite Positive H, Urine Bilirubin Negative, Urine Urobilinogen Normal, Ur Leukocyte Esterase 500 H, Urine RBC 25-50 SEEN, Urine WBC 25-50 SEEN, Ur Squamous Epith Cells 0-5 SEEN, Urine Bacteria 1+, Urine Mucus 0 SEEN 10/13/23 19:09: Lactic Acid 1.5 06/26/23 04:10: WBC Cancelled, Corrected WBC Cancelled, RBC Cancelled, Hgb Cancelled, Hct Cancelled, MCV Cancelled, MCH Cancelled, MCHC Cancelled, RDW Std Deviation Cancelled, RDW Coeff of Luiz Cancelled, Plt Count Cancelled, MPV Cancelled, Diff Path Review Cancelled, Sodium 141, Potassium 4.2, Chloride 108 H, Carbon Dioxide 27.0, Anion Gap 6, BUN 42 H, Creatinine 1.82 H, Estim Creat Clear Calc 34.35, Est GFR (MDRD) Af Amer 46 L, Est GFR (MDRD) Non-Af 38 L, BUN/Creatinine Ratio 23.1 H, Glucose 154 H, Calcium 8.3 L 06/26/23 05:03: WBC 13.2 H, RBC 3.65 L, Hgb 9.6 L, Hct 32.3 L, MCV 88.5, MCH 26.3 L, MCHC 29.7 L, RDW Std Deviation 59.3 H, RDW Coeff of Luiz 18.3 H, Plt Count 189, MPV 10.1, Immature Gran % (Auto) 1.900 H, Neut % (Auto) 80.1 H, Lymph % (Auto) 4.5 L, [place] % (Auto) 13.3 H, Eos % (Auto) 0.0, Baso % (Auto) 0.2, Absolute Neuts (auto) 10.6 H, Absolute Lymphs (auto) 0.60 L, Nucleated RBC % 0, Differential Comment SCANNED, Diff Path Review May foll Micro: No cultures are available for review. Patient reportedly does have outside cultures ABG Data ABG results: ABG 06/25/23 14:29 Specimen Type ART Sample Site R Radial pH 7.49 H Bicarbonate Actual 23.8 Total CO2 25 Base Excess 0 O2 Saturation 92 L O2 % 2.5 ABG pCO2 31.5 L ABG pO2 59 L Juan Test Positive O2 Delivery Device Cannula Vent Mode Not entered Attestation: I personally reviewed and interpreted this ABG as follows: (See HPI) Rhythm Strip Rhythm Strip: Sinus Rhythm Rate: 67 Ectopy: None Radiology Impression Chest X-Ray 06/25/23 14:10 IMPRESSION: Mild bibasilar atelectasis. Electronically Signed: Patrica Crabtree MD at 14:29 EDT , Abdomen/Pelvis CT 06/25/23 18:57 IMPRESSION: Bilateral renal cysts. Bilateral ureteral stents are noted. Periureteral stranding along the right ureter. Wall thickening of urinary bladder. This may be inflammatory or infectious in etiology. Hepatic hypoattenuated nodule may be cystic in nature, similar to previous study Colonic diverticulosis. Bilateral basilar consolidations/atelectasis Electronically Signed: Roshan Arguelles DO at 20:05 EDT , Charges/Coding Visit Charges Inpatient E&M: 24271 Init Hosp L3
[2023-06-26] MEDS: oxyCODONE 5 MG Tablet PO (08:33)
[2023-06-26] MEDS: Cefepime HCl 1 GM in 0.9% Normal Saline (50mL MB+) 50 ML IV ×2 (11:54→21:00)
[2023-06-26] MEDS: Rivaroxaban 2.5 MG Tablet PO (11:56)
--- NOTE | 2023-06-26 15:02 | CASEMGMT ---
DARÍO GEORGE Assessment: Face to Face with pt for initial transition planning/care coordination assessment. RN DORIS introduced self and role at [facility], pt voices understanding and consents to assessment. Pt is A&O x4 and answers all questions appropriately at this time. Pt sitting up in chair with at bedside. Care providers, pharmacy, and demographics verified/updated. Admitting Dx: hemorrhagic shock PCP:Damien Arias [facility] Specialists:Rashawn, uro; Chris, cardio; Jerrod Preferred Pharmacy: [facility] Insurance: [facility] Prescription Benefit: yes LNOK: Bijal Adams, Living Arrangements: Pt lives with in a two story home with 3 steps to enter with no rail. Pt reports prior to hospitalization he was I in ADL's. Pt does meals, groceries and laundry. Pt denies concerns at home. Transportation: Pt drives self and denies concerns with transportation. DME:pox, cane, walker, nebulizer, oxygen through [employer] at 2.5 liters at hs- no portability HHC/SNF: Pt denies hx of Pt states no concerns with going home at time of dc. Pt states no further concerns/needs. CM to follow. Advised pt to ask CM if any further question/concerns/needs arise, voices understanding. Pt Goal: Home Plan: Home, follow therapy and increased oxygen needs
[2023-06-26 17:51] LABS: Hematocrit 32.3 % (40-54); Hemoglobin 9.6 g/dL (13.0-16.5)
[2023-06-26] MEDS: Menthol/Lanolin/Calamine/Znox 113 GM Tube 1 APPLIC TOPICAL (21:01)
[2023-06-26] MEDS: Magnesium Chloride 64 MG Delay Rel.Tablet 128 MG PO (21:02)
[2023-06-26] MEDS: Montelukast 10 MG Tablet PO (21:02)
[2023-06-26] MEDS: Atorvastatin Calcium 10 MG Tablet 5 MG PO (21:02)
[2023-06-26] MEDS: Acetaminophen 325 MG Tablet PO (21:04)
[2023-06-27] VITALS (7 sets, daily range): BP systolic 127–157; BP diastolic 64–78; PULSE 61–77; RESP 16–22; TEMP 36.4–37.1; O2SAT 91–98; BMI 28.5
[2023-06-27 06:05] LABS: Hematocrit 30.5 % (40-54); Hemoglobin 9.1 g/dL (13.0-16.5); Mean Corp Hgb Conc 29.8 g/dL (32-36); Mean Corpuscular Hgb 25.9 pg (27.0-32.0); Mean Corpuscular Volume 86.9 fL (80-94); Mean Platelet Vol. 10.2 fl (6.2-12.0); Platelet Count 179 K/mm3 (150-450); RBC Distribution Width SD 57.6 fl (35.1-43.9); Red Blood Count 3.51 M/mm3 (4.6-6.2); White Blood Count 6.8 K/mm3 (4.4-11.0)
[2023-06-27 06:54] LABS: Anion Gap 7 (5-15); BUN 48 mg/dL (7-18); BUN/Creat Ratio 26.8 RATIO (10-20); Calcium,Total 8.4 mg/dL (8.5-10.1); Chloride 108 mmol/L (98-107); Creatinine, Serum 1.79 mg/dL (0.70-1.30); EST Glomerular Filtration Rate 39 mL/min (>60); Est Glom Filt Rate - Afr Amer 47 mL/min (>60); Estimated Creatinine Clearance 34.92 ml/min; Glucose 136 mg/dL (74-106); Potassium 3.7 mmol/L (3.5-5.1); Sodium Level 140 mmol/L (136-145)
--- NOTE | 2023-06-27 07:25 | PCM.PN.INT ---
Assessment & Plan Assessment/Plan (1) Infectious encephalopathy: (2) Sepsis: QUALIFIERS: Sepsis type: Pseudomonas Sepsis acute organ dysfunction status: with acute organ dysfunction Severe sepsis acute organ dysfunction type: encephalopathy Severe sepsis shock status: without septic shock Qualified Code(s): A41.52 - Sepsis due to Pseudomonas; R65.20 - Severe sepsis without septic shock; G93.41 - Metabolic encephalopathy (3) RENEE (acute kidney injury): PLAN: Plan RECOMMENDATIONS: 1. Continue empiric antibiotics pending cultures 2. Continue p.o. pain control 3. Encourage incentive spirometer. Wean oxygen as tolerated 4. Hemodynamically stable on room air. Will sign off from a critical care perspective 5. Continue with delirium protocol IMPRESSIONS: 1. Sepsis secondary to UTI Resolved. Patient appears to have had bacteremia following instrumentation with urologic procedure. Patient is improving on the current therapy. The patient continues to improve through the day, can likely go to the floor. Will likely require 24 to 48 hours of IV antibiotics pending cultures. 2. Metabolic encephalopathy secondary to problem #1 Appears to be resolved. Patient appears to be improving at this time. Patient is not having significant behavioral issues, but would be at risk for development of delirium given comorbidities. Continue with delirium protocol. 3. Acute kidney injury secondary to problem #1 Improving. Patient with significant increase in creatinine on presentation. Unclear baseline as previous labs were sometime ago. Will obtain outside records for comparison. Patient does appear to be responding well to blood pressure support 4. Hypertension/hyperlipidemia/CAD status post CABG/pulmonary hypertension/COPD Complicates care, management, recovery and prognosis. Agree with holding losartan given acute kidney injury. Likely restart antihypertensives tomorrow in a stepwise fashion. Would be cautious with Xarelto therapy given patient's renal issues. Eliquis may be a better option, but may have financial reasons for Xarelto. Subjective Subjective Patient transferred out of the intensive care unit yesterday. Patient did require minimal nasal cannula oxygen overnight for sleep, but this is his baseline. Patient subjectively feels slightly improved compared to previous. Objective Data Objective Data Vital Signs: Vital Signs Temp Pulse Resp BP Pulse Ox O2 Del Method O2 Flow Rate 36.4 C L 61 18 127/64 H 98 Nasal Cannula 2 06/27/23 03:00 06/27/23 03:00 06/27/23 03:00 06/27/23 03:00 06/27/23 03:00 06/27/23 03:00 06/27/23 03:00 Oxygen Flow Rate (L/min) 2 Oxygen Delivery Method Nasal Cannula Weight: 96.4 kg Body Mass Index (BMI) 28.8 Intake & Output: Intake and Output for Last 24 Hours 06/25/23 06/26/23 06/27/23 23:59 23:59 23:59 Intake Total 480 / 580 2220 / 2220 240 / 240 Output Total 250 / 650 2400 / 2400 400 / 400 Balance 230 / -70 -180 / -180 -160 / -160 Lab / Micro Data Attestation: I reviewed the patient's lab results. 06/27/23 05:25 06/27/23 05:25 Labs: Laboratory Results - last 24 hr 06/26/23 17:14: Hgb 9.6 L, Hct 32.3 L 06/27/23 05:25: WBC 6.8, RBC 3.51 L, Hgb 9.1 L, Hct 30.5 L, MCV 86.9, MCH 25.9 L, MCHC 29.8 L, RDW Std Deviation 57.6 H, RDW Coeff of Luiz 18.0 H, Plt Count 179, MPV 10.2, Sodium 140, Potassium 3.7, Chloride 108 H, Carbon Dioxide 25.0, Anion Gap 7, BUN 48 H, Creatinine 1.79 H, Estim Creat Clear Calc 34.92, Est GFR (MDRD) Af Amer 47 L, Est GFR (MDRD) Non-Af 39 L, BUN/Creatinine Ratio 26.8 H, Glucose 136 H, Calcium 8.4 L Micro: Microbiology 06/25/23 14:05 Urine Catheter - Cervantes Urine Culture - Preliminary Gram negative dontae Rhythm Strip Rhythm Strip: Sinus Rhythm Rate: 61 Ectopy: None Physical Exam Const alert and oriented x3 Constitutional Narrative: Resting comfortably on initial evaluation. Wakes up appropriately General Appearance: cooperative HEENT normocephalic and head/scalp atraumatic Eyes PERRL and EOMs intact bilaterally Eyes Narrative: No scleral injection Neck no lymphadenopathy, supple and no JVD General: trachea midline Lymph Lymphatic: no lymphadenopathy noted, lymphedema and lymphadenopathy Resp normal respiratory effort, normal air movement and clear to auscultation bilaterally Cardio regular rate, regular rhythm, S1 normal heart sound, S2 normal heart sound and peripheral pulses 2+ throughout GI soft to palpation, non-tender and non-distended Extremity normal capillary refill and no clubbing, cyanosis or edema General Extremity: no tenderness to palpation of joints or extremities Skin no rashes or lesions noted General Skin Exam: turgor normal Lesions: no lesions Rashes: no rashes Neuro oriented x3, CN's II-XII intact bilaterally and moves all extremities Speech: speech normal Motor Exam: strength 5/5 throughout; Negative for general weakness Psych thought process normal, cooperative and affect normal Appearance: appropriate Charges/Coding Visit Charges Inpatient E&M: 99015 Subs Hosp L2
[2023-06-27] MEDS: Budesonide Respules 0.5 MG/2 ML AMPUL.NEB. INHALATION ×2 (07:35→19:47)
[2023-06-27] MEDS: Ipratropium/Albuterol Sulfate 3 ML AMPUL.NEB INHALATION ×2 (07:35→19:47)
--- NOTE | 2023-06-27 08:16 | PN.HOSP_ITS ---
Reason for Visit Reason for Visit: Diagnoses Sepsis due to Pseudomonas (06/25/23) Sepsis, unspecified organism (06/25/23) Unspecified infectious disease (06/25/23) Metabolic encephalopathy (06/25/23) Other encephalopathy (06/25/23) Acute kidney failure, unspecified (06/25/23) Calculus of ureter (06/25/23) Urinary tract infection, site not specified (06/25/23) Severe sepsis without septic shock (06/25/23) Subjective Subjective Feels well. Denies complaints. Objective Data Objective Data Vital Signs: Vital Signs Temp Pulse Resp BP Pulse Ox O2 Del Method O2 Flow Rate 36.4 C L 61 18 127/64 H 98 Nasal Cannula 2 06/27/23 03:00 06/27/23 03:00 06/27/23 03:00 06/27/23 03:00 06/27/23 03:00 06/27/23 03:00 06/27/23 03:00 Oxygen Flow Rate (L/min) 2 Oxygen Delivery Method Nasal Cannula Weight: 95.3 kg Body Mass Index (BMI) 28.5 Intake & Output: Intake and Output for Last 24 Hours 06/25/23 06/26/23 06/27/23 23:59 23:59 23:59 Intake Total 480 / 580 2220 / 2220 240 / 240 Output Total 250 / 650 2400 / 2400 400 / 400 Balance 230 / -70 -180 / -180 -160 / -160 Lab / Micro Data 06/27/23 05:25 06/27/23 05:25 Labs: Laboratory Results - last 24 hr 06/26/23 17:14: Hgb 9.6 L, Hct 32.3 L 06/27/23 05:25: WBC 6.8, RBC 3.51 L, Hgb 9.1 L, Hct 30.5 L, MCV 86.9, MCH 25.9 L , MCHC 29.8 L, RDW Std Deviation 57.6 H, RDW Coeff of Luiz 18.0 H, Plt Count 179, MPV 10.2, Sodium 140, Potassium 3.7, Chloride 108 H, Carbon Dioxide 25.0, Anion Gap 7, BUN 48 H, Creatinine 1.79 H, Estim Creat Clear Calc 34.92, Est GFR (MDRD) Af Amer 47 L, Est GFR (MDRD) Non-Af 39 L, BUN/Creatinine Ratio 26.8 H, Glucose 136 H, Calcium 8.4 L Micro: Microbiology 06/25/23 14:05 Urine Catheter - Cervantes Urine Culture - Preliminary Gram negative dontae Rhythm Strip Rhythm Strip: Sinus Rhythm Rate: 61 Ectopy: None Physical Exam Const alert and no apparent distress HEENT head/scalp atraumatic and moist oral mucous membranes Resp normal respiratory effort, no retractions, no use of accessory muscles and clear to auscultation bilaterally Cardio regular rate, regular rhythm, S1 normal heart sound and S2 normal heart sound GI normal to inspection, nondistended, normoactive bowel sounds Extremity normal to inspection Assessment & Plan Assessment/Plan (1) Sepsis: QUALIFIERS: Sepsis acute organ dysfunction status: with acute organ dysfunction Sepsis type: Pseudomonas Severe sepsis acute organ dysfunction type: encephalopathy Severe sepsis shock status: without septic shock Qualified Code(s): A41.52 - Sepsis due to Pseudomonas; R65.20 - Severe sepsis without septic shock; G93.41 - Metabolic encephalopathy PLAN: POA: qSOFA 2: for tachypnea and encephalopathy. SIRS 4/4: WBC 18.6, temp 38.8, RR 28, HR 92. Organ disfunction with encepahlopathy and RENEE 2/2 UTI BCx and UCx pending. Previous cultures grew out pseudomonas. ABX with cefepime. (2) Complicated urinary tract infection: PLAN: Onset unclear, but concerning may have present earlier at OSH. Unclear if was related with infected stone/stent, etc. On Cefepime. Previous cultures grew out pseudomonas. Current UCx showing Pseudomonas, sensitive to Amikacin, gent, imipenem, meropenem, pip/olamide, tobramycin Continue cefepime. Unfortunately, it appears there is no oral options. Will consult ID for discharge recommendations. (3) RENEE (acute kidney injury): PLAN: 2/2 sepsis, medications, dehydration Furosemide and losartan held Improving with IVF Through [facility], Creatinine was 1.42 on 06/17 (4) Ureteral calculi: PLAN: Pt underwent cystoscopy, dilation of uretheral stricture, balloon dilation of bilateral ureter w ureteroscopy laser lithotripsy and stent placements on 06/[address] Morocho. Prior, had dilation of prostatic urethera with catheter placement. following, possible stent removal on 06/28 PLAN: Plan Chronic conditions * HTN: stable. Hold losartan and furosemide given RENEE for now. * HLD: continue statin * CAD: stable * COPD: continue budesonide, PRN BDs * pulmonary HTN: unclear type and severity. * chronic anticoagulation: unclear reason for it DVT prophylaxis: not indicated as he is rivaroxaban. Charges/Coding Visit Charges Inpatient E&M: 54923 Subs Hosp L2
[2023-06-27] MEDS: 0.9% Saline Lock 10 ML Syringe IV ×2 (09:51→21:15)
[2023-06-27] MEDS: Cefepime HCl 1 GM in 0.9% Normal Saline (50mL MB+) 50 ML IV ×2 (09:51→21:16)
[2023-06-27] MEDS: Menthol/Lanolin/Calamine/Znox 113 GM Tube 1 APPLIC TOPICAL (09:52)
--- NOTE | 2023-06-27 09:53 | PN.URO_ITS ---
Subjective Subjective Patient is clinically stable not transferred to the regular floor, yesterday he had some bleeding from her catheter he is got a stent in the catheter he was on Eliquis we stopped the Eliquis the bleeding is stopped the nurses flush the catheter the continue to flush the catheter as necessary I think it might remove the catheter and the stents tomorrow for voiding trial but will need to leave him off the Eliquis for the time being. Like to get the patient up and moving around so we will get the catheter out tomorrow continue cefepime for infection. Objective Data Objective Data Vital Signs: Vital Signs Temp Pulse Resp BP Pulse Ox O2 Del Method O2 Flow Rate 98.6 F 63 16 157/68 H 94 Nasal Cannula 2 06/27/23 08:22 06/27/23 08:22 06/27/23 08:22 06/27/23 08:22 06/27/23 08:22 06/27/23 08:32 06/27/23 09:42 Oxygen Flow Rate (L/min) 2 Oxygen Delivery Method Nasal Cannula Weight: 95.3 kg Body Mass Index (BMI) 28.5 Intake & Output: Intake and Output for Last 24 Hours 06/25/23 06/26/23 06/27/23 23:59 23:59 23:59 Intake Total 480 / 580 2220 / 2220 240 / 240 Output Total 250 / 650 2400 / 2400 400 / 400 Balance 230 / -70 -180 / -180 -160 / -160 Lab / Micro Data Attestation: I reviewed the patient's lab results. 06/27/23 05:25 06/27/23 05:25 Labs: Laboratory Results - last 24 hr 06/26/23 17:14: Hgb 9.6 L, Hct 32.3 L 06/27/23 05:25: WBC 6.8, RBC 3.51 L, Hgb 9.1 L, Hct 30.5 L, MCV 86.9, MCH 25.9 L , MCHC 29.8 L, RDW Std Deviation 57.6 H, RDW Coeff of Luiz 18.0 H, Plt Count 179, MPV 10.2, Sodium 140, Potassium 3.7, Chloride 108 H, Carbon Dioxide 25.0, Anion Gap 7, BUN 48 H, Creatinine 1.79 H, Estim Creat Clear Calc 34.92, Est GFR (MDRD) Af Amer 47 L, Est GFR (MDRD) Non-Af 39 L, BUN/Creatinine Ratio 26.8 H, Glucose 136 H, Calcium 8.4 L Micro: Microbiology 06/25/23 14:05 Urine Catheter - Cervantes Urine Culture - Preliminary Gram negative dontae Rhythm Strip Rhythm Strip: Sinus Rhythm Rate: 61 Ectopy: None Physical Exam Const alert and oriented x3 General Appearance: cooperative HEENT normocephalic, head/scalp atraumatic, EAC's normal and TM's normal bilaterally Eyes PERRL and EOMs intact bilaterally Pupil: sluggish Neck no lymphadenopathy, supple and no JVD General: trachea midline Lymph Lymphatic: no lymphadenopathy noted, lymphedema and lymphadenopathy Resp normal respiratory effort, normal air movement and clear to auscultation bilaterally Cardio regular rate, regular rhythm and peripheral pulses 2+ throughout GI soft to palpation, non-tender and non-distended Extremity normal capillary refill and no clubbing, cyanosis or edema General Extremity: no tenderness to palpation of joints or extremities Skin no rashes or lesions noted General Skin Exam: turgor normal Lesions: no lesions Rashes: no rashes Neuro CN's II-XII intact bilaterally Speech: speech normal Motor Exam: strength 5/5 throughout; Negative for general weakness Psych thought process normal, cooperative and affect normal Appearance: appropriate Assessment & Plan Assessment/Plan (1) Ureteral calculi: PLAN: 83-year-old male status post laser bilateral obstructing ureteral calculi he was pre-stent and also given antibiotics prior to the procedure but he still ended up at end up having like possible sepsis and confusion after the procedure and was returned to the hospital about 48 hours of the procedure was admitted put him back on antibiotics and at this point he is doing better plan to continue with IV antibiotics we will see if we can do a voiding trial and the stent removal tomorrow and continue for now can hold the Eliquis (2) RENEE (acute kidney injury): (3) Sepsis: QUALIFIERS: Sepsis type: Pseudomonas Sepsis acute organ dysfunction status: with acute organ dysfunction Severe sepsis acute organ dysfunction type: encephalopathy Severe sepsis shock status: without septic shock Qualified Code(s): A41.52 - Sepsis due to Pseudomonas; R65.20 - Severe sepsis without septic shock; G93.41 - Metabolic encephalopathy
[2023-06-27] MEDS: Atorvastatin Calcium 10 MG Tablet 5 MG PO (21:15)
[2023-06-27] MEDS: Montelukast 10 MG Tablet PO (21:15)
[2023-06-27] MEDS: Magnesium Chloride 64 MG Delay Rel.Tablet 128 MG PO (21:15)
[2023-06-28] VITALS (8 sets, daily range): BP systolic 123–149; BP diastolic 67–75; PULSE 64–76; RESP 16–18; TEMP 36.2–36.8; O2SAT 91–99; BMI 28.4
[2023-06-28] MEDS: Mag Hydrox/Al Hydrox/Simeth 30 ML UDC PO (03:10)
--- NOTE | 2023-06-28 03:21 | NURSING ---
Pt notified this RN that his bladder was painful and felt as if he had to pee. Only 50ml in juarez bag. Flushed juarez with 50ml sterile water, got 750ml back out. Pt stated the pain was gone after flushing. Bladder scanned to ensure no residual, 0ml in bladder.
[2023-06-28 06:44] LABS: Hemoglobin 9.5 g/dL (13.0-16.5); Mean Corp Hgb Conc 30.6 g/dL (32-36); Mean Corpuscular Hgb 26.4 pg (27.0-32.0); Mean Corpuscular Volume 86.1 fL (80-94); Mean Platelet Vol. 10.2 fl (6.2-12.0); Platelet Count 222 K/mm3 (150-450); RBC Distribution Width CV 17.9 % (11.6-14.6); RBC Distribution Width SD 56.6 fl (35.1-43.9); White Blood Count 4.9 K/mm3 (4.4-11.0)
[2023-06-28 07:08] LABS: Anion Gap 8 (5-15); BUN 47 mg/dL (7-18); BUN/Creat Ratio 30.1 RATIO (10-20); Calcium,Total 8.9 mg/dL (8.5-10.1); Chloride 108 mmol/L (98-107); Creatinine, Serum 1.56 mg/dL (0.70-1.30); EST Glomerular Filtration Rate 46 mL/min (>60); Est Glom Filt Rate - Afr Amer 55 mL/min (>60); Estimated Creatinine Clearance 40.07 ml/min; Glucose 142 mg/dL (74-106); Potassium 3.7 mmol/L (3.5-5.1); Sodium Level 140 mmol/L (136-145)
[2023-06-28] MEDS: Budesonide Respules 0.5 MG/2 ML AMPUL.NEB. INHALATION ×2 (07:46→20:25)
[2023-06-28] MEDS: Ipratropium/Albuterol Sulfate 3 ML AMPUL.NEB INHALATION ×2 (07:46→20:25)
[2023-06-28] MEDS: 0.9% Saline Lock 10 ML Syringe IV ×2 (08:44→22:32)
[2023-06-28] MEDS: Cefepime HCl 1 GM in 0.9% Normal Saline (50mL MB+) 50 ML IV (08:45)
--- NOTE | 2023-06-28 10:41 | CASEMGMT ---
Patient has a Healthcare Power of Ballet Professor and a Healthcare Living Will. Patient is aware copies are not on file at [facility] and to bring in copies. Patient's Bijal is patient's Healthcare Power of Ballet Professor. Pallavi CARRANZA
--- NOTE | 2023-06-28 13:13 | PN_ITS ---
Subjective Subjective Patient seen and examined. He had no complaints and feels well. He had an uneventful night. Review of systems is otherwise negative. Objective Data Objective Data Vital Signs: Vital Signs Temp Pulse Resp BP Pulse Ox O2 Del Method O2 Flow Rate 98.3 F 76 18 123/67 H 94 Room Air 2 06/28/23 08:39 06/28/23 08:39 06/28/23 08:39 06/28/23 08:39 06/28/23 08:39 06/28/23 08:56 06/28/23 03:12 Oxygen Flow Rate (L/min) 2 Oxygen Delivery Method Room Air Weight: 209 lb 14.081 oz Body Mass Index (BMI) 28.4 Intake & Output: Intake and Output for Last 24 Hours 06/26/23 06/27/23 06/28/23 23:59 23:59 23:59 Intake Total 2220 / 2220 1315 / 1315 350 / 350 Output Total 2400 / 2400 1825 / 1825 1100 / 1100 Balance -180 / -180 -510 / -510 -750 / -750 Lab / Micro Data 06/28/23 06:14 06/28/23 06:14 Labs: Laboratory Results - last 24 hr 06/28/23 06:14: WBC 4.9, RBC 3.60 L, Hgb 9.5 L, Hct 31.0 L, MCV 86.1, MCH 26.4 L , MCHC 30.6 L, RDW Std Deviation 56.6 H, RDW Coeff of Luiz 17.9 H, Plt Count 222, MPV 10.2, Sodium 140, Potassium 3.7, Chloride 108 H, Carbon Dioxide 24.0, Anion Gap 8, BUN 47 H, Creatinine 1.56 H, Estim Creat Clear Calc 40.07, Est GFR (MDRD) Af Amer 55 L, Est GFR (MDRD) Non-Af 46 L, BUN/Creatinine Ratio 30.1 H, Glucose 142 H, Calcium 8.9 Micro: Microbiology 06/25/23 14:05 Urine Catheter - Cervantes Urine Culture - Final Pseudomonas aeruginosa 06/25/23 14:21 Blood Culture (Wb) - Right Wrist Blood Culture - Preliminary No growth in 48 hours. 06/25/23 13:40 Blood Culture (Wb) - Right Wrist Blood Culture - Preliminary No growth in 48 hours. Rhythm Strip Rhythm Strip: Sinus Rhythm Rate: 61 Ectopy: None Physical Exam Const alert, oriented x3 and no apparent distress General Appearance: cooperative and well developed HEENT normocephalic, head/scalp atraumatic and moist oral mucous membranes Eyes PERRL and EOMs intact bilaterally Neck no lymphadenopathy and supple Lymph Lymphatic: no lymphadenopathy noted and no lymphedema noted Resp normal respiratory effort, normal air movement and clear to auscultation bilaterally Cardio regular rate, regular rhythm, S1 normal heart sound, S2 normal heart sound and no murmurs GI normal to inspection, nondistended, normoactive bowel sounds, soft to palpation, non-tender and non-distended Extremity normal capillary refill, no clubbing, cyanosis or edema and no calf tenderness Skin General Skin Exam: no breakdown and turgor normal Neuro CN's II-XII intact bilaterally, no focal motor deficits, no sensory deficits noted and deep tendon reflexes 2+ bilaterally Motor Exam: strength 5/5 throughout and general weakness Psych thought process normal and cooperative Appearance: appropriate Assessment & Plan Assessment/Plan (1) Ureteral calculi: (2) RENEE (acute kidney injury): (3) Sepsis: QUALIFIERS: Sepsis type: Pseudomonas Sepsis acute organ dysfunction status: with acute organ dysfunction Severe sepsis acute organ dysfunction type: encephalopathy Severe sepsis shock status: without septic shock Qualified Code(s): A41.52 - Sepsis due to Pseudomonas; R65.20 - Severe sepsis without septic shock; G93.41 - Metabolic encephalopathy PLAN: Plan #Sepsis due to complicated UTI * patieint improving * urine cultures growing Pseudomonas. * on IV cefepime * ID consulted. * #RENEE * furosemide and losartan on hold. * baseline Cr is 1.42 * continue gentle hydration with IVF * #Ureteral calculi * s.p cystoscopy and dilation of urethral stricture, balloon dilation of bilateral ureter with ureteroscopy and laser lithotripsy and stent placement on 06/23 by urology * urology on board. Await further rec's * #HypertesnIon; losartan and furosemide on hold #Hyperlipidemia:on statin #COPD:on breathing treatment with bronchodilators. Not in exacerbation. DVT prophylaxis: eliquis still on hold as he may have the stent removed today Charges/Coding Visit Charges Inpatient E&M: 42192 Subs Hosp L2
--- NOTE | 2023-06-28 17:12 | CON.PCM.ID_ITS ---
Assessment & Plan Assessment/Plan (1) RENEE (acute kidney injury): (2) Complicated urinary tract infection: PLAN: Will treat for upper tract infection. Ucx with PsA. Cont cefepime, will increase dose due to improving RENEE. Plan on midline to complete outpt iv abx. Will follow, thank you HPI Consult Data Date of Consult: 06/28/23 HPI Narrative Reason for Consultation: uti HPI Narrative: MARZENA TAPIA, is a 83 M who presented with several days fever, chills, weakness, after recent urologic procedure. Went to [place] ED, Ucx with PsA, admitted here, now on cefepime feeling better. No abd pain. Full ROS performed and neg except as noted above. [facility]LY [facility] Medical History Alcohol use Asthma Cancer Cardiology follow-up encounter COPD (chronic obstructive pulmonary disease) Easy bruising Former smoker Hepatitis High cholesterol History of echocardiogram History of edema History of stress test Hypertension Indwelling urethral catheter present Kidney stones Leg cramps On home oxygen therapy Prostate disease Restless legs Ureteral calculi Wears dentures Wears glasses Wears partial dentures Home Medications albuterol sulfate 2.5 mg/3 mL (0.083 %) solution for nebulization 2.5 mg inhalation BID PRN shortness of breath 06/21/23 [History Last Taken 06/23/23] ascorbic acid (vitamin C) 1,000 mg tablet,extended release (C Complex) 1,000 mg PO DAILY 06/21/23 [History Last Taken Unknown] budesonide 160 mcg-glycopyr 9 mcg-formot 4.8 mcg/actuation HFA inhaler (Breztri Aerosphere) 2 inh inhalation BID 06/21/23 [History Last Taken 06/23/23] cholecalciferol (vitamin D3) 125 mcg (5,000 unit) tablet (Vitamin D3) 125 mcg PO DAILY 06/21/23 [History Last Taken Unknown] coenzyme Q10 100 mg capsule (CoQ-10) 200 mg PO QHS 06/21/23 [History Last Taken Unknown] collagen,hydrolysate 500 mg-biotin 800 mcg-ascorbic acid 50 mg capsule (Collagen 1500 Plus C) 1 cap PO QHS 06/21/23 [History Last Taken Unknown] cyanocobalamin-liver extract tablet 1 tab PO DAILY 06/21/23 [History Last Taken Unknown] furosemide 20 mg tablet 20 mg PO DAILY 06/21/23 [History Last Taken Unknown] guaifenesin 600 mg tablet, extended release 12 hr (Mucus Relief ER) 1,200 mg PO DAILY 06/21/23 [History Last Taken 06/23/23 06:30] ipratropium bromide 17 mcg/actuation HFA aerosol inhaler (Atrovent HFA) 2 inh inhalation BID 06/21/23 [History Last Taken 06/23/23] krill 500 mg-omega-3 150 mg-dha 45 mg-epa 75 [id number]-mnojd capsule (krill oil) 1 cap PO DAILY 06/21/23 [History Last Taken 06/20/23] losartan 100 mg tablet 100 mg PO DAILY 06/21/23 [History Last Taken 06/23/23 06:30] magnesium 100 mg tablet 400 mg PO QHS 06/21/23 [History Last Taken Unknown] montelukast 10 mg tablet 10 mg PO QHS 06/21/23 [History Last Taken Unknown] pyridoxine (vitamin B6) 100 mg tablet 100 mg PO DAILY 06/21/23 [History Last Taken Unknown] rivaroxaban 2.5 mg tablet (Xarelto) 2.5 mg PO BID 06/21/23 [History Last Taken 06/19/23] saw palmetto 450 mg capsule 450 mg PO BID 06/21/23 [History Last Taken Unknown] selenium 200 mcg tablet 200 mcg PO DAILY 06/21/23 [History Last Taken Unknown] simvastatin 5 mg tablet 5 mg PO QHS 06/21/23 [History Last Taken Unknown] zinc gluconate 50 mg tablet 50 mg PO DAILY 06/21/23 [History Last Taken Unknown] Allergy/AdvReac Type Severity Reaction Status Date / Time ciprofloxacin [From Cipro] Allergy Intermediate Rash Verified 06/25/23 13:39 lisinopril AdvReac Mild Other Verified 06/25/23 13:39 Family History Other Heart disease Surgical History History of cardiac catheterization History of cystoscopy Hx of colonoscopy Hx of cystoscopy Hx of heart bypass surgery Hx of left cataract extraction Hx of right cataract extraction Social History household members: spouse Smoking Status: Former smoker substance use type: does not use Physical Exam Const alert, oriented x3 and no apparent distress General Appearance: cooperative HEENT normocephalic and head/scalp atraumatic Eyes PERRL and EOMs intact bilaterally Neck supple and No nodes Resp normal air movement and clear to auscultation bilaterally Cardio regular rate and regular rhythm GI soft to palpation, non-tender and non-distended Extremity General Extremity: Negative for edema Skin no rashes or lesions noted Neuro CN's II-XII intact bilaterally Lab / Micro Data Attestation: I reviewed the patient's lab results. 06/28/23 06:14 06/28/23 06:14 Labs: Laboratory Results - last 24 hr 06/28/23 06:14: WBC 4.9, RBC 3.60 L, Hgb 9.5 L, Hct 31.0 L, MCV 86.1, MCH 26.4 L , MCHC 30.6 L, RDW Std Deviation 56.6 H, RDW Coeff of Luiz 17.9 H, Plt Count 222, MPV 10.2, Sodium 140, Potassium 3.7, Chloride 108 H, Carbon Dioxide 24.0, Anion Gap 8, BUN 47 H, Creatinine 1.56 H, Estim Creat Clear Calc 40.07, Est GFR (MDRD) Af Amer 55 L, Est GFR (MDRD) Non-Af 46 L, BUN/Creatinine Ratio 30.1 H, Glucose 142 H, Calcium 8.9 Micro: Microbiology 06/25/23 14:05 Urine Catheter - Cervantes Urine Culture - Final Pseudomonas aeruginosa Rhythm Strip Rhythm Strip: Sinus Rhythm Rate: 61 Ectopy: None
[2023-06-28] MEDS: Magnesium Chloride 64 MG Delay Rel.Tablet 128 MG PO (22:24)
[2023-06-28] MEDS: Montelukast 10 MG Tablet PO (22:24)
[2023-06-28] MEDS: Atorvastatin Calcium 10 MG Tablet 5 MG PO (22:24)
[2023-06-28] MEDS: CEFEPIME HCL IV (22:32)
[2023-06-28] MEDS: NORMAL SALINE 0.9% IV (22:32)
[2023-06-29] MEDS: Acetaminophen 325 MG Tablet PO (01:11)
[2023-06-29] MEDS: 0.9% Saline Lock 10 ML Syringe IV ×2 (01:47→10:10)
[2023-06-29] MEDS: Metoclopramide 10 MG/2 ML Vial IV (01:47)
[2023-06-29 05:03] VITALS: BP 147/71; PULSE 58; RESP 18; TEMP 36.6; O2SAT 93
[2023-06-29 06:00] VITALS: BMI 28.8
[2023-06-29] MEDS: oxyCODONE 5 MG Tablet PO (06:15)
--- NOTE | 2023-06-29 06:16 | EKG12_ITS ---
Test Reason : CP Blood Pressure : / mmHG Vent. Rate : 059 BPM Atrial Rate : 059 BPM P-R Int : 180 ms QRS Dur : 110 ms QT Int : 430 ms P-R-T Axes : 051 -02 -10 degrees QTc Int : 425 ms Sinus bradycardia with Premature atrial complexes with Aberrant conduction Inferior infarct , age undetermined Abnormal ECG When compared with ECG of 25-JUN-2023 14:10, MANUAL COMPARISON REQUIRED, DATA IS UNCONFIRMED Confirmed by ELENA PARKINSON, DAMIAN ([id number]), managing editor JASVIR RIVERA ([id number]) on 07/01/2023 1:28:41 PM Referred By: Confirmed By:DAMIAN PARKER MD
[2023-06-29 06:39] VITALS: PULSE 68; RESP 18; O2SAT 96
[2023-06-29] MEDS: Budesonide Respules 0.5 MG/2 ML AMPUL.NEB. INHALATION ×2 (06:39→19:40)
[2023-06-29] MEDS: Ipratropium/Albuterol Sulfate 3 ML AMPUL.NEB INHALATION ×2 (06:39→19:40)
[2023-06-29 07:05] LABS: Absolute Lymphocyte Count 1.04 X10^3/uL (0.83-4.51); Absolute Neutrophil Count 2.8 X10^3/uL (2.0-7.7); Basophil# 0.02 X10^3/uL; Basophil% 0.4 % (0-1); Eosinophil# 0.18 X10^3/uL; Hematocrit 31.2 % (40-54); Hemoglobin 9.6 g/dL (13.0-16.5); Lymphocyte # 1.04 X10^3/ul (0.83-4.51); Mean Corp Hgb Conc 30.8 g/dL (32-36); Mean Corpuscular Hgb 26.4 pg (27.0-32.0); Mean Platelet Vol. 9.8 fl (6.2-12.0); Monocyte# 0.42 X10^3/uL; Monocyte% 9.3 % (0-10); NRBC Flagged by Analyzer 0 % (0-5); Neutrophil # 2.77 X10^3/uL (2.7-7.7); Neutrophil % 61.1 % (47-70); Platelet Count 250 K/mm3 (150-450); RBC Distribution Width CV 17.8 % (11.6-14.6); RBC Distribution Width SD 56.2 fl (35.1-43.9); Red Blood Count 3.63 M/mm3 (4.6-6.2); White Blood Count 4.5 K/mm3 (4.4-11.0)
--- NOTE | 2023-06-29 07:35 | PCM.PN.GU ---
Subjective Subjective Patient is doing much better he is clinically stable infection is clearing with cefepime. Today I remove the Cervantes catheter and also has both stents from each side. As long as he can urinate okay hopefully we will have to put the catheter back in. Probably would recommend we continue to hold the Eliquis for the time being since his prostatic stricture with dense just dilated and will likely bleed if we start Eliquis black up Objective Data Objective Data Vital Signs: Vital Signs Temp Pulse Resp BP Pulse Ox O2 Del Method O2 Flow Rate 97.9 F 68 18 147/71 H 96 Room Air 2 06/29/23 05:03 06/29/23 06:39 06/29/23 06:39 06/29/23 05:03 06/29/23 06:39 06/29/23 06:39 06/28/23 03:12 Oxygen Flow Rate (L/min) 2 Oxygen Delivery Method Room Air Weight: 96.4 kg Body Mass Index (BMI) 28.8 Intake & Output: Intake and Output for Last 24 Hours 06/27/23 06/28/23 06/29/23 23:59 23:59 23:59 Intake Total 1315 / 1315 780 / 780 Output Total 1825 / 1825 1900 / 1900 300 / 300 Balance -510 / -510 -1120 / -1120 -300 / -300 Lab / Micro Data 06/29/23 06:45 06/28/23 06:14 Labs: Laboratory Results - last 24 hr 06/29/23 06:45: WBC 4.5, RBC 3.63 L, Hgb 9.6 L, Hct 31.2 L, MCV 86.0, MCH 26.4 L, MCHC 30.8 L, RDW Std Deviation 56.2 H, RDW Coeff of Luiz 17.8 H, Plt Count 250, MPV 9.8, Immature Gran % (Auto) 2.200 H, Neut % (Auto) 61.1, Lymph % (Auto) 23.0, [place] % (Auto) 9.3, Eos % (Auto) 4.0, Baso % (Auto) 0.4, Absolute Neuts (auto) 2.8, Absolute Lymphs (auto) 1.04, Nucleated RBC % 0 Micro: Microbiology 06/25/23 14:05 Urine Catheter - Cervantes Urine Culture - Final Pseudomonas aeruginosa 06/25/23 14:21 Blood Culture (Wb) - Right Wrist Blood Culture - Preliminary No growth in 48 hours. 06/25/23 13:40 Blood Culture (Wb) - Right Wrist Blood Culture - Preliminary No growth in 48 hours. Rhythm Strip Rhythm Strip: Sinus Rhythm Rate: 61 Ectopy: None
[2023-06-29 07:47] LABS: Troponin-I HS 12 pg/mL (3.0-78.0)
[2023-06-29 08:31] LABS: Anion Gap 6 (5-15); BUN 34 mg/dL (7-18); BUN/Creat Ratio 25.6 RATIO (10-20); Calcium,Total 8.9 mg/dL (8.5-10.1); Chloride 111 mmol/L (98-107); Creatinine, Serum 1.33 mg/dL (0.70-1.30); EST Glomerular Filtration Rate 55 mL/min (>60); Est Glom Filt Rate - Afr Amer 66 mL/min (>60); Glucose 128 mg/dL (74-106); Potassium 3.7 mmol/L (3.5-5.1); Sodium Level 141 mmol/L (136-145)
[2023-06-29 09:25] LABS: Troponin-I HS 11 pg/mL (3.0-78.0)
[2023-06-29 09:46] LABS: Pathologist Review Reviewed
[2023-06-29 09:49] LABS: Pathologist Review Reviewed
[2023-06-29 10:05] VITALS: BP 129/62; PULSE 65; RESP 18; TEMP 36.4; O2SAT 96
[2023-06-29] MEDS: CEFEPIME HCL IV (10:10)
[2023-06-29] MEDS: NORMAL SALINE 0.9% IV (10:10)
--- NOTE | 2023-06-29 11:01 | CASEMGMT ---
Discharge Planning A list of?HH providers including quality and resource use data and consistent with the patient's preferred geographic region, medical needs, and insurance network was created in [employer] Guide.? This list was provided to the RN DORIS. Henna Stanley, Discharge Planning Asst.
--- NOTE | 2023-06-29 11:10 | CASEMGMT ---
RN CM in to discuss discharge needs with patient. Per ID, patient will need IV ATBs at discharge. RN CM discussed HHC and Infusion setup with patient. A list of HHC providers including quality and resource use data and consistent with the patient?s preferred geographical region, medical needs, and insurance network were provided from the [employer] Guide. Patient's called in to patient during converstation, RN CM updated regarding discharge needs. Patinet and prefer [facility] and [facility] for HHC and IV ATBS. Patient had no further questions or concerns. RN DORIS sent referral to [facility], awaiting acceptance. RN DORIS updated discharge pre planning advisor to send referral to [facility] for IV ATBs. CM will continue to follow this patient and plan for a safe discharge.
--- NOTE | 2023-06-29 11:31 | CASEMGMT ---
Discharge Planning Referral sent to [facility] and [facility] via [facility]. Henna Stanley, Discharge Planning Asst.
[2023-06-29 13:17] LABS: Troponin-I HS 12 pg/mL (3.0-78.0)
--- NOTE | 2023-06-29 15:37 | CASEMGMT ---
DARÍO GEORGE received call back from [facility] and they are able to accept patient with planned start of care for tomorrow evening. DARÍO GEORGE received script from ID, order is for IV Cefepime 2gm q 12 hrs. DARÍO GEORGE requested floor nurse to adjust medication schedule to have evening dose tonight at 2100 and morning dose at 0800. ADRÍO GEORGE updated [facility] on medication adjustment and planned start of care for tomorrow at 6-7pm. DARÍO GEORGE updated patient regarding acceptance and cost of antibiotic. Patient and voiced understanding. DARÍO GEORGE requested discharge property assistant to update [facility] regarding planned start of care for 1800 on 06/30/23. DARÍO GEORGE updated floor nurse to discharge plan. DARÍO GEORGE updated urologist regarding discharge plan. CM will continue to follow this patient and plan for a safe discharge.
--- NOTE | 2023-06-29 15:38 | PN.ID_ITS ---
Physical Exam Narrative Feeling better, no fever, getting stronger, no abd pain Const alert and no apparent distress General Appearance: cooperative Resp normal air movement and clear to auscultation bilaterally Cardio regular rate and regular rhythm GI soft to palpation, non-tender and non-distended Skin no rashes or lesions noted ID ID: Route of nutrition/ use of supplements: [] Nutritional Intake: [] IV Site: [] Cervantes Catheter: [] Assessment & Plan Assessment/Plan (1) RENEE (acute kidney injury): (2) Complicated urinary tract infection: PLAN: Will treat for upper tract infection. Ucx with PsA. Cont cefepime. Will order midline and 5 more days cefepime, plan on d/c home tomorrow. Wrote rx, d/w case management specialist Will follow
[2023-06-29 15:53] VITALS: BP 155/86; PULSE 67; RESP 16; TEMP 36.6; O2SAT 99
--- NOTE | 2023-06-29 16:25 | PCM.DC.SUM ---
Providers Date of Admission: 06/25/23 Date of Discharge: 06/30/23 Primary Care Physician: JEFF Champion Consultations 06/25/23 19:03 Consult: Hospitalist Routine Consulting Provider: [facility] Reason for Consult: sepsis and medical manegement EMERGENT Consult: Yes MD Notified: No Date Notified: 06/25/23 Time Notified: 19:04 Consult: Cdl Service Technician / Pulmonary Medicine Routine Consulting Provider: Armen Vazquez Reason for Consult: sepsis EMERGENT Consult: No MD Notified: Yes Date Notified: 06/25/23 Time Notified: 19:03 Method of Notification: Text 06/25/23 19:34 Consult: Hospitalist Routine Consulting Provider: [facility] Reason for Consult: sepsis and medical management EMERGENT Consult: Yes MD Notified: Yes Date Notified: 06/26/23 Time Notified: 11:03 Method of Notification: Verbal 06/27/23 12:31 Consult: Infectious Disease Routine Consulting Provider: Gerald Lambert Reason for Consult: UTI. Sepsis from psuedomonas EMERGENT Consult: No MD Notified: Yes Date Notified: 06/28/23 Time Notified: 06:45 Method of Notification: Answering Service Reason For Visit: SEPSIS S/P LASER STONE Diagnosis Discharge Diagnosis (1) RENEE (acute kidney injury): Status: Acute Code(s): N17.9 - Acute kidney failure, unspecified (2) Complicated urinary tract infection: Status: Acute Code(s): N39.0 - Urinary tract infection, site not specified Medications at Discharge Home Medications albuterol sulfate 2.5 mg/3 mL (0.083 %) solution for nebulization 2.5 mg inhalation BID PRN shortness of breath 06/21/23 ascorbic acid (vitamin C) 1,000 mg tablet,extended release (C Complex) 1,000 mg PO DAILY 06/21/23 budesonide 160 mcg-glycopyr 9 mcg-formot 4.8 mcg/actuation HFA inhaler (Breztri Aerosphere) 2 inh inhalation BID 06/21/23 cholecalciferol (vitamin D3) 125 mcg (5,000 unit) tablet (Vitamin D3) 125 mcg PO DAILY 06/21/23 coenzyme Q10 100 mg capsule (CoQ-10) 200 mg PO QHS 06/21/23 collagen,hydrolysate 500 mg-biotin 800 mcg-ascorbic acid 50 mg capsule (Collagen 1500 Plus C) 1 cap PO QHS 06/21/23 cyanocobalamin-liver extract tablet 1 tab PO DAILY 06/21/23 furosemide 20 mg tablet 20 mg PO DAILY 06/21/23 guaifenesin 600 mg tablet, extended release 12 hr (Mucus Relief ER) 1,200 mg PO DAILY 06/21/23 ipratropium bromide 17 mcg/actuation HFA aerosol inhaler (Atrovent HFA) 2 inh inhalation BID 06/21/23 krill 500 mg-omega-3 150 mg-dha 45 mg-epa 75 [id number]-fbted capsule (krill oil) 1 cap PO DAILY 06/21/23 losartan 100 mg tablet 100 mg PO DAILY 06/21/23 magnesium 100 mg tablet 400 mg PO QHS 06/21/23 montelukast 10 mg tablet 10 mg PO QHS 06/21/23 pyridoxine (vitamin B6) 100 mg tablet 100 mg PO DAILY 06/21/23 rivaroxaban 2.5 mg tablet (Xarelto) 2.5 mg PO BID 06/21/23 saw palmetto 450 mg capsule 450 mg PO BID 06/21/23 selenium 200 mcg tablet 200 mcg PO DAILY 06/21/23 simvastatin 5 mg tablet 5 mg PO QHS 06/21/23 zinc gluconate 50 mg tablet 50 mg PO DAILY 06/21/23 cefepime 2 gram/50 mL in dextrose 5 % intravenous piggyback 2 g IV Q12H 5 days 06/29/23 Hospital Course Summary of Care Provided Minutes Spent on Discharge: 35 Hospital Course: 83-year-old male with a history of prostate cancer in the past, Who underwent outpatient ureteroscopy and laser lithotripsy of bilateral obstructing ureteral calculi and stent placement. The patient then presented back to the hospital with confusion fevers and infection Urine culture came back positive with Pseudomonas, he was presented to the intensive care unit for close observation, then stabilized consul was placed two incentive, he is also seen by infectious disease, patient was stabilized and his sepsis resolved. Cervantes catheter has been removed and the stents as well. He'll go home without a catheter without stents in your ago with IV antibiotics cefepime to treat Pseudomonas infection which is a highly resistant infection. He'll follow-up as an outpatient. Physical Exam Const alert and oriented x3 General Appearance: cooperative HEENT normocephalic, head/scalp atraumatic, EAC's normal and TM's normal bilaterally Eyes PERRL and EOMs intact bilaterally Pupil: sluggish Neck no lymphadenopathy, supple and no JVD General: trachea midline Lymph Lymphatic: no lymphadenopathy noted, lymphedema and lymphadenopathy Resp normal respiratory effort, normal air movement and clear to auscultation bilaterally Cardio regular rate, regular rhythm and peripheral pulses 2+ throughout GI soft to palpation, non-tender and non-distended Extremity normal capillary refill and no clubbing, cyanosis or edema General Extremity: no tenderness to palpation of joints or extremities Skin no rashes or lesions noted General Skin Exam: turgor normal Lesions: no lesions Rashes: no rashes Neuro CN's II-XII intact bilaterally Speech: speech normal Motor Exam: strength 5/5 throughout; Negative for general weakness Psych thought process normal, cooperative and affect normal Appearance: appropriate Medical Records Data Medical Nutrition Assessment Dietitian: Malnutrition Criteria Met Start: 06/29/23 15:14 Freq: Status: Active Protocol: Document 06/29/23 15:14 (Rec: 06/29/23 15:14 [id number]) Nutrition Malnutrition Evidence of Malnutrition Exists Yes Malnutrition (severe): Acute Illness/Injury Evidenced By Suboptimal Energy Intake ( Severe),Weight Loss (Severe) Intake Problem Inadequate Oral Intake Etiology related to decreased appetite w/ acute illness Signs/Symptoms as evidenced by estimated PO intake meeting<50% of estimated energy needs Status Active Problem Clinical Problem Acute Disease or Injury Related Malnutrition Etiology severe, acute malnutrition related to inadequate energy intake d/t decreased appetite Signs/Symptoms as evidenced by estimated PO intake meeting <50% of estimated energy needs > 5 days; unintentional 1.6kg/2% wt loss x 6 days Status Active Problem Recommendation Dietitian Recommendations/Changes continue regular diet as tolerated; will monitor PO intake and add ONS if pt willing to try, declines all at this time Weight / BMI Weight Weight: 96.4 kg Body Mass Index (BMI) 28.8 ABG / Lab / Microbiology Data 06/29/23 06:45 06/29/23 06:45 Laboratory: Laboratory Results - last 24 hr 06/25/23 13:40: Diff Path Review Reviewed 06/26/23 05:03: Diff Path Review Reviewed 06/29/23 06:45: WBC 4.5, RBC 3.63 L, Hgb 9.6 L, Hct 31.2 L, MCV 86.0, MCH 26.4 L, MCHC 30.8 L, RDW Std Deviation 56.2 H, RDW Coeff of Luiz 17.8 H, Plt Count 250, MPV 9.8, Immature Gran % (Auto) 2.200 H, Neut % (Auto) 61.1, Lymph % (Auto) 23.0, [place] % (Auto) 9.3, Eos % (Auto) 4.0, Baso % (Auto) 0.4, Absolute Neuts (auto) 2.8, Absolute Lymphs (auto) 1.04, Nucleated RBC % 0, Sodium 141, Potassium 3.7, Chloride 111 H, Carbon Dioxide 24.0, Anion Gap 6, BUN 34 H, Creatinine 1.33 H, Estim Creat Clear Calc 47.00, Est GFR (MDRD) Af Amer 66, Est GFR (MDRD) Non-Af 55 L, BUN/Creatinine Ratio 25.6 H, Glucose 128 H, Calcium 8.9, Troponin I High Sens 12 06/29/23 08:40: Troponin I High Sens 11 06/29/23 12:45: Troponin I High Sens 12 Microbiology: Microbiology 06/25/23 14:05 Urine Catheter - Cervantes Urine Culture - Final Pseudomonas aeruginosa 06/25/23 14:21 Blood Culture (Wb) - Right Wrist Blood Culture - Preliminary No growth in 48 hours. 06/25/23 13:40 Blood Culture (Wb) - Right Wrist Blood Culture - Preliminary No growth in 48 hours. Meaningful Use Info Meaningful Use Diagnoses (Choose all that apply): None applicable Discharge Plan Admission Admit Date/Time: 06/25/23 18:51 Primary Reason for Your Visit: sepsis with pseudomonas Attending Provider: Liana Whitaker Primary Care Provider: Damien Arias NP Consulting Providers: Britton Morocho; Felix Colbert; Faviola Vergara; Rosa Mak; Luis Enrique Hardy Efewongbe; Vivien Ruiz; Julia Dale NP; Enmanuel Seaman NP; Erendira Fernández; Erendira Gilbert; Armen Vazquez; Gerald Lambert; Woody Bourne Discharge Orders/Prescriptions Prescriptions: New cefepime in dextrose 5 % 2 gram/50 mL piggyback 2 g IV Q12H 5 Days Rx Instructions: dx: pseudomonas infection Discontinued cephalexin 500 mg capsule 500 mg PO TID Qty: 15 0RF Hold Instructions: Pt has been DC'd No Action guaifenesin [Mucus Relief ER] 600 mg tablet extended release 12hr 1,200 mg PO DAILY Patient Comments: TAKE 1 TABLET BY MOUTH TWICE A DAY FOR 7 DAYS albuterol sulfate 2.5 mg /3 mL (0.083 %) solution for nebulization 2.5 mg inhalation BID PRN (Reason: shortness of breath) Patient Comments: TAKE 1 VIAL INHALATION FOUR TIMES A DAY NEEDED Atrovent HFA 17 mcg/actuation HFA aerosol inhaler 2 inh INHALATION BID Breztri Aerosphere 160-9-4.8 mcg/actuation HFA aerosol inhaler 2 inh INHALATION BID losartan 100 mg tablet 100 mg PO DAILY pyridoxine (vitamin B6) 100 mg tablet 100 mg PO DAILY cyanocobalamin-liver extract Tablet 1 tab PO DAILY Xarelto 2.5 mg tablet 2.5 mg PO BID furosemide 20 mg tablet 20 mg PO DAILY magnesium 100 mg tablet 400 mg PO QHS simvastatin 5 mg tablet 5 mg PO QHS krill oil [id number] mg capsule 1 cap PO DAILY Hold Instructions: Pt has been DC'd coenzyme Q10 [CoQ-10] 100 mg capsule 200 mg PO QHS Collagen 1500 Plus C 500 mg-800 mcg- 50 mg capsule 1 cap PO QHS saw palmetto 450 mg capsule 450 mg PO BID Hold Instructions: Pt has been DC'd Rx Instructions: give with food (meal/snack) selenium 200 mcg tablet 200 mcg PO DAILY zinc gluconate 50 mg tablet 50 mg PO DAILY cholecalciferol (vitamin D3) [Vitamin D3] 125 mcg (5,000 unit) tablet 125 mcg PO DAILY C Complex 1,000 mg tablet extended release 1,000 mg PO DAILY montelukast 10 mg tablet 10 mg PO QHS Referrals / Follow Up: Damien Arias NP, [facility] [Primary Care Provider] - Britton Morocho MD [Med Staff - Active Staff] - Disposition Discharge Orders: Discharge Patient (Routine); Ordered 06/30/23 Ordered By: Dr. Britton Morocho
--- NOTE | 2023-06-29 16:44 | PN_ITS ---
Subjective Subjective Patient seen and examined. He had no complaints and felt well. He had an uneventful night. Review of systems is otherwise negative. He has remained hemodynamically stable. Objective Data Objective Data Vital Signs: Vital Signs Temp Pulse Resp BP Pulse Ox O2 Del Method O2 Flow Rate 97.9 F 67 16 155/86 H 99 Room Air 2 06/29/23 15:53 06/29/23 15:53 06/29/23 15:53 06/29/23 15:53 06/29/23 15:53 06/29/23 15:53 06/28/23 03:12 Oxygen Flow Rate (L/min) 2 Oxygen Delivery Method Room Air Weight: 212 lb 8.41 oz Body Mass Index (BMI) 28.8 Intake & Output: Intake and Output for Last 24 Hours 06/27/23 06/28/23 06/29/23 23:59 23:59 23:59 Intake Total 1315 / 1315 780 / 780 50 / 50 Output Total 1825 / 1825 1900 / 1900 300 / 300 Balance -510 / -510 -1120 / -1120 -250 / -250 Medical Nutrition Assessment Dietitian: Malnutrition Criteria Met Start: 06/29/23 15:14 Freq: Status: Active Protocol: Document 06/29/23 15:14 AG (Rec: 06/29/23 15:14 [id number]) Nutrition Malnutrition Evidence of Malnutrition Exists Yes Malnutrition (severe): Acute Illness/Injury Evidenced By Suboptimal Energy Intake ( Severe),Weight Loss (Severe) Intake Problem Inadequate Oral Intake Etiology related to decreased appetite w/ acute illness Signs/Symptoms as evidenced by estimated PO intake meeting<50% of estimated energy needs Status Active Problem Clinical Problem Acute Disease or Injury Related Malnutrition Etiology severe, acute malnutrition related to inadequate energy intake d/t decreased appetite Signs/Symptoms as evidenced by estimated PO intake meeting <50% of estimated energy needs > 5 days; unintentional 1.6kg/2% wt loss x 6 days Status Active Problem Recommendation Dietitian Recommendations/Changes continue regular diet as tolerated; will monitor PO intake and add ONS if pt willing to try, declines all at this time Lab / Micro Data 06/29/23 06:45 06/29/23 06:45 Labs: Laboratory Results - last 24 hr 06/25/23 13:40: Diff Path Review Reviewed 06/26/23 05:03: Diff Path Review Reviewed 06/29/23 06:45: WBC 4.5, RBC 3.63 L, Hgb 9.6 L, Hct 31.2 L, MCV 86.0, MCH 26.4 L , MCHC 30.8 L, RDW Std Deviation 56.2 H, RDW Coeff of Luiz 17.8 H, Plt Count 250, MPV 9.8, Immature Gran % (Auto) 2.200 H, Neut % (Auto) 61.1, Lymph % (Auto) 23.0, Dougherty % (Auto) 9.3, Eos % (Auto) 4.0, Baso % (Auto) 0.4, Absolute Neuts (auto) 2.8, Absolute Lymphs (auto) 1.04, Nucleated RBC % 0, Sodium 141, Potassium 3.7, Chloride 111 H, Carbon Dioxide 24.0, Anion Gap 6, BUN 34 H, Creatinine 1.33 H, Estim Creat Clear Calc 47.00, Est GFR (MDRD) Af Amer 66, Est GFR (MDRD) Non-Af 55 L, BUN/Creatinine Ratio 25.6 H, Glucose 128 H, Calcium 8.9, Troponin I High Sens 12 06/29/23 08:40: Troponin I High Sens 11 06/29/23 12:45: Troponin I High Sens 12 Micro: Microbiology 06/25/23 14:05 Urine Catheter - Juarez Urine Culture - Final Pseudomonas aeruginosa 06/25/23 14:21 Blood Culture (Wb) - Right Wrist Blood Culture - Preliminary No growth in 48 hours. 06/25/23 13:40 Blood Culture (Wb) - Right Wrist Blood Culture - Preliminary No growth in 48 hours. Rhythm Strip Rhythm Strip: Sinus Rhythm Rate: 61 Ectopy: None Physical Exam Const alert, oriented x3 and no apparent distress General Appearance: cooperative and well developed HEENT normocephalic, head/scalp atraumatic and moist oral mucous membranes Eyes PERRL and EOMs intact bilaterally Neck no lymphadenopathy and supple Lymph Lymphatic: no lymphadenopathy noted and no lymphedema noted Resp normal respiratory effort, normal air movement, no retractions, no use of accessory muscles and clear to auscultation bilaterally Cardio regular rate, regular rhythm, S1 normal heart sound, S2 normal heart sound and no murmurs GI normal to inspection, nondistended, normoactive bowel sounds, soft to palpation, non-tender and non-distended Extremity normal to inspection, normal capillary refill, no clubbing, cyanosis or edema and no calf tenderness Skin General Skin Exam: no breakdown and turgor normal Neuro CN's II-XII intact bilaterally, no focal motor deficits, no sensory deficits noted and deep tendon reflexes 2+ bilaterally Motor Exam: strength 5/5 throughout and general weakness Psych thought process normal and cooperative Appearance: appropriate Assessment & Plan Assessment/Plan (1) Ureteral calculi: (2) RENEE (acute kidney injury): (3) Sepsis: QUALIFIERS: Sepsis type: Pseudomonas Sepsis acute organ dysfunction status: with acute organ dysfunction Severe sepsis acute organ dysfunction type: encephalopathy Severe sepsis shock status: without septic shock Qualified Code(s): A41.52 - Sepsis due to Pseudomonas; R65.20 - Severe sepsis without septic shock; G93.41 - Metabolic encephalopathy PLAN: Plan #Sepsis due to complicated UTI * patieint improving * urine cultures growing Pseudomonas. * on IV cefepime; ID on board, for 5 more days of antibiotics * ID on board. * #RENEE * furosemide and losartan on hold. * baseline Cr is 1.42 * continue gentle hydration with IVF * #Ureteral calculi * s.p cystoscopy and dilation of urethral stricture, balloon dilation of bilateral ureter with ureteroscopy and laser lithotripsy and stent placement on 06/23 by urology * urology on board. * juarez catheter removed by urology. * #Hypertension: losartan and furosemide on hold #Hyperlipidemia:on statin #COPD:on breathing treatment with bronchodilators. Not in exacerbation. DVT prophylaxis:on eliquis. Disposition: for dc to SNF at [place] tomorrow Charges/Coding Visit Charges Inpatient E&M: 70477 Subs Hosp L2
[2023-06-29 19:40] VITALS: PULSE 67; RESP 18
[2023-06-29 20:55] VITALS: BP 139/63; PULSE 68; RESP 16; TEMP 36.3; O2SAT 92
[2023-06-29] MEDS: Atorvastatin Calcium 10 MG Tablet 5 MG PO (21:01)
[2023-06-29] MEDS: Magnesium Chloride 64 MG Delay Rel.Tablet 128 MG PO (21:02)
[2023-06-29] MEDS: Montelukast 10 MG Tablet PO (21:03)
[2023-06-29] MEDS: Cefepime HCl 2 GM in 0.9% Normal Saline (100mL MB+) 100 ML IV (21:04)
[2023-06-30 03:48] VITALS: BP 146/64; PULSE 63; RESP 18; TEMP 36.3; O2SAT 94
[2023-06-30] MEDS: Acetaminophen 325 MG Tablet PO (04:15)
--- NOTE | 2023-06-30 05:00 | NURSING ---
pt only voided 150ml overnight, bladder scanned for 438
[2023-06-30 05:46] VITALS: BMI 28.4
--- NOTE | 2023-06-30 06:15 | NURSING ---
Got pt up to BR, bladder scanned for 348 post void
[2023-06-30 07:08] LABS: Absolute Lymphocyte Count 1.08 X10^3/uL (0.83-4.51); Absolute Neutrophil Count 3.7 X10^3/uL (2.0-7.7); Basophil# 0.03 X10^3/uL; Basophil% 0.5 % (0-1); Eosinophil# 0.19 X10^3/uL; Eosinophils% 3.4 % (0-5); Hemoglobin 9.4 g/dL (13.0-16.5); Lymphocyte # 1.08 X10^3/ul (0.83-4.51); Lymphocyte % 19.1 % (19-41); Mean Corp Hgb Conc 29.4 g/dL (32-36); Mean Corpuscular Hgb 25.6 pg (27.0-32.0); Mean Corpuscular Volume 87.2 fL (80-94); Monocyte# 0.49 X10^3/uL; Monocyte% 8.7 % (0-10); NRBC Flagged by Analyzer 0 % (0-5); Neutrophil # 3.74 X10^3/uL (2.7-7.7); POSITIVE MORPHOLOGY YES; Platelet Count 267 K/mm3 (150-450); RBC Distribution Width CV 17.9 % (11.6-14.6); RBC Distribution Width SD 57.2 fl (35.1-43.9); Red Blood Count 3.67 M/mm3 (4.6-6.2); White Blood Count 5.7 K/mm3 (4.4-11.0)
[2023-06-30] MEDS: Budesonide Respules 0.5 MG/2 ML AMPUL.NEB. INHALATION (07:12)
[2023-06-30] MEDS: Ipratropium/Albuterol Sulfate 3 ML AMPUL.NEB INHALATION (07:12)
[2023-06-30 07:14] VITALS: PULSE 67; RESP 18; O2SAT 96
[2023-06-30 07:14] LABS: Differential Indicated SCAN CRITERIA MET
[2023-06-30 07:33] LABS: Anion Gap 4 (5-15); BUN 29 mg/dL (7-18); BUN/Creat Ratio 20.6 RATIO (10-20); Calcium,Total 9.1 mg/dL (8.5-10.1); Chloride 111 mmol/L (98-107); Creatinine, Serum 1.41 mg/dL (0.70-1.30); EST Glomerular Filtration Rate 51 mL/min (>60); Est Glom Filt Rate - Afr Amer 62 mL/min (>60); Estimated Creatinine Clearance 44.33 ml/min; Glucose 116 mg/dL (74-106); Potassium 3.8 mmol/L (3.5-5.1); Sodium Level 140 mmol/L (136-145)
[2023-06-30 08:07] VITALS: BP 135/75; PULSE 64; RESP 18; TEMP 36.6; O2SAT 94
[2023-06-30] MEDS: 0.9% Saline Lock 10 ML Syringe IV (08:09)
[2023-06-30] MEDS: Cefepime HCl 2 GM in 0.9% Normal Saline (100mL MB+) 100 ML IV (08:11)
[2023-06-30 08:43] LABS: Reactive Lymphocyte 1+
--- NOTE | 2023-06-30 12:09 | CASEMGMT ---
DARÍO GEORGE called Debbi at [facility] to confirm discharge and arrange for delivery of IV ATBs this evening with next dose at 1900. Debbi to call patient to verify information. Discharge strategic planning director updated to send midline information and discharge summary. DARÍO GEORGE called and updated [facility] of discharge. DARÍO GEORGE updated patient regarding discharge home today, HHC, and ATB delivery today. Patient and had no further questions or concerns.
[2023-06-30 12:45] VITALS: BP 147/73; PULSE 61; RESP 16; TEMP 36.7; O2SAT 95
--- NOTE | 2023-06-30 16:21 | PN_ITS ---
Subjective Subjective Patient seen and examined. He felt well. He did have a bit of difficulty urinating today. His Juarez catheter has been removed per urology. Review of symptoms otherwise negative. He has been hemodynamically stable and plan is for discharge today. Objective Data Objective Data Vital Signs: Vital Signs Temp Pulse Resp BP Pulse Ox O2 Del Method O2 Flow Rate 98.0 F 61 16 147/73 H 95 Room Air 2 06/30/23 12:45 06/30/23 12:45 06/30/23 12:45 06/30/23 12:45 06/30/23 12:45 06/30/23 12:45 06/30/23 00:50 Oxygen Flow Rate (L/min) 2 Oxygen Delivery Method Room Air Weight: 209 lb 14.081 oz Body Mass Index (BMI) 28.4 Intake & Output: Intake and Output for Last 24 Hours 06/28/23 06/29/23 06/30/23 23:59 23:59 23:59 Intake Total 780 / 780 150 / 150 100 / 100 Output Total 1900 / 1900 450 / 450 1250 / 1250 Balance -1120 / -1120 -300 / -300 -1150 / -1150 Lab / Micro Data 06/30/23 06:13 06/30/23 06:13 Labs: Laboratory Results - last 24 hr 06/30/23 06:13: WBC 5.7, RBC 3.67 L, Hgb 9.4 L, Hct 32.0 L, MCV 87.2, MCH 25.6 L , MCHC 29.4 L, RDW Std Deviation 57.2 H, RDW Coeff of Luiz 17.9 H, Plt Count 267, MPV 10.0, Immature Gran % (Auto) 2.300 H, Neut % (Auto) 66.0, Lymph % (Auto) 19.1, [place]ount % (Auto) 8.7, Eos % (Auto) 3.4, Baso % (Auto) 0.5, Absolute Neuts (auto) 3.7, Absolute Lymphs (auto) 1.08, Nucleated RBC % 0, Reactive Lymphocytes 1+, Sodium 140, Potassium 3.8, Chloride 111 H, Carbon Dioxide 25.0, Anion Gap 4 L, BUN 29 H, Creatinine 1.41 H, Estim Creat Clear Calc 44.33, Est GFR (MDRD) Af Amer 62, Est GFR (MDRD) Non-Af 51 L, BUN/Creatinine Ratio 20.6 H, Glucose 116 H, Calcium 9.1 Micro: Microbiology 06/25/23 14:21 Blood Culture (Wb) - Right Wrist Blood Culture - Final No growth in 5 days. 06/25/23 13:40 Blood Culture (Wb) - Right Wrist Blood Culture - Final No growth in 5 days. 06/25/23 14:05 Urine Catheter - Juarez Urine Culture - Final Pseudomonas aeruginosa Rhythm Strip Rhythm Strip: Sinus Rhythm Rate: 61 Ectopy: None Physical Exam Const alert, oriented x3 and no apparent distress General Appearance: cooperative and well developed HEENT normocephalic, head/scalp atraumatic and moist oral mucous membranes Eyes PERRL and EOMs intact bilaterally Neck no lymphadenopathy and supple Lymph Lymphatic: no lymphadenopathy noted and no lymphedema noted Resp normal respiratory effort, normal air movement, no retractions, no use of accessory muscles and clear to auscultation bilaterally Cardio regular rate, regular rhythm, S1 normal heart sound, S2 normal heart sound and no murmurs GI normal to inspection, nondistended, normoactive bowel sounds, soft to palpation, non-tender and non-distended Extremity normal to inspection, normal capillary refill, no clubbing, cyanosis or edema a nd no calf tenderness Skin General Skin Exam: no breakdown and turgor normal Neuro CN's II-XII intact bilaterally, no focal motor deficits, no sensory deficits noted and deep tendon reflexes 2+ bilaterally Motor Exam: strength 5/5 throughout and general weakness Psych thought process normal, cooperative and affect normal Appearance: appropriate Assessment & Plan Assessment/Plan (1) Ureteral calculi: (2) RENEE (acute kidney injury): (3) Sepsis: QUALIFIERS: Sepsis type: Pseudomonas Sepsis acute organ dysfunction status: with acute organ dysfunction Severe sepsis acute organ dysfunction type: encephalopathy Severe sepsis shock status: without septic shock Qualified Code(s): A41.52 - Sepsis due to Pseudomonas; R65.20 - Severe se psis without septic shock; G93.41 - Metabolic encephalopathy PLAN: Plan #Sepsis due to complicated UTI * patieint improving * urine cultures growing Pseudomonas. * on IV cefepime; ID on board, for 5 more days of antibiotics * ID on board. * Midline inserted to complete course of antibiotics. * #RENEE * Creatinine had trended up slightly to 1.4 today. This likely due to urinary retention. Juarez catheter reinserted as per urology. * #Ureteral calculi * s.p cystoscopy and dilation of urethral stricture, balloon dilation of bilateral ureter with ureteroscopy and laser lithotripsy and stent placement on 06/23 by urology * urology on board. * juarez catheter removed by urology. * Patient however had urinary retention today. He was bladder scanned and had about 500 cc of urine. Urology was therefore informed and plan was for Juarez catheter to be reinserted for patient to be discharged and follow-up with urology on outpatient basis. * #Hypertension: Losartan and torsemide resumed. #Hyperlipidemia:on statin #COPD:on breathing treatment with bronchodilators. Not in exacerbation. DVT prophylaxis:on eliquis. Disposition: for dc to SNF at [place] today Charges/Coding Visit Charges Inpatient E&M: 17963 Subs Hosp L2
== END 2023-06-30 13:23 | disposition home health service (06) | DRG 862 ==
LOC: ED 15:36 → ICU 19:17 → PCU 06-28 07:29
PROVIDERS: Family Medicine; Hospitalist; Admitting Provider Urology; Emergency Provider Emergency Medicine; PCP Nurse Practitioner Primary Care; Visit Provider Student in an Organized Health Care Education/Training Program
DX: T81.44XA Sepsis following a procedure, initial encounter (principal); A41.52 Sepsis due to Pseudomonas; E43 Unspecified severe protein-calorie malnutrition; G93.41 Metabolic encephalopathy; R65.20 Severe sepsis without septic shock; N17.9 Acute kidney failure, unspecified; N20.1 Calculus of ureter; N39.0 Urinary tract infection, site not specified; I27.20 Pulmonary hypertension, unspecified; J44.9 Chronic obstructive pulmonary disease, unspecified; I10 Essential (primary) hypertension; E78.00 Pure hypercholesterolemia, unspecified; I25.10 Atherosclerotic heart disease of native coronary artery without angina pectoris; Z79.51 Long term (current) use of inhaled steroids; Z79.01 Long term (current) use of anticoagulants; Z87.891 Personal history of nicotine dependence; N35.819 Other urethral stricture, male, unspecified site; Z68.28 Body mass index [BMI] 28.0-28.9, adult; Z79.899 Other long term (current) drug therapy
CPT/HCPCS: 36415; 36600; 71045; 74176; 76000; 80048; 80053; 81001; 82803; 83605; 84484; 85014; 85018; 85025; 85027; 85610; 85730; 87040; 87077; 87086; 87088; 87184; 87186; 93005; 94640; 94668; 97110; 97162; 97166; 97530; 97535; 99285; J7040; J7050; J7120; A4216; C1726; C1758; C1769; C2617; J2405

== ENCOUNTER → 2023-07-19 | Outpatient (CLI) | payer MEDICARE, SELFPAY | END | disposition home or self-care (01) | LOC: LAB 13:29 | PROVIDERS: PCP Nurse Practitioner Primary Care; Referring Provider Urology; Visit Provider Urology | DX: C61 Malignant neoplasm of prostate (principal) | CPT/HCPCS: 36415; 84153 ==

== ENCOUNTER → 2024-02-08 | Outpatient (CLI) | payer MEDICARE, SELFPAY ==
--- NOTE | 2024-02-08 15:43 | RAD_ITS ---
STUDY: X-RAY CHEST REASON FOR EXAM: Male, 83 years old. SOB COUGH TECHNIQUE: Frontal and lateral views of the chest. COMPARISON: 06/25/2023. FINDINGS: Elevated left hemidiaphragm. Otherwise hyperexpansion of the lungs and evidence of COPD. No infiltrates or effusions are seen. Normal size heart. Previous CABG. Normal mediastinum and margarette. Normal visualized pulmonary arteries. There is atherosclerotic calcification of the aortic arch with tortuosity. There are diffuse degenerative changes of the visualized thoracic spine. Normal visualized ribs, clavicles, and shoulders. There is no demonstrated abnormality of the visualized soft tissue structures of the upper abdomen. RAD/Chest PA and Lateral IMPRESSION: There are findings consistent with COPD. There is no evidence of acute chest disease. Electronically Signed: Jj Paula MD at 16:52 EDT ,
[2024-02-08 17:58] LABS: Hematocrit 36.1 % (40-54); Mean Corp Hgb Conc 30.5 g/dL (32-36); Mean Corpuscular Volume 91.9 fL (80-94); Platelet Count 203 K/mm3 (150-450); RBC Distribution Width CV 16.4 % (11.6-14.6); RBC Distribution Width SD 54.9 fl (35.1-43.9); Red Blood Count 3.93 M/mm3 (4.6-6.2); White Blood Count 6.5 K/mm3 (4.4-11.0)
== END | disposition home or self-care (01) ==
LOC: MTLAB 15:37
PROVIDERS: PCP Nurse Practitioner Primary Care; Referring Provider Internal Medicine Pulmonary Disease; Visit Provider Internal Medicine Pulmonary Disease
DX: R06.02 Shortness of breath (principal); R05.9 Cough, unspecified
CPT/HCPCS: 36415; 71046; 85027

== ENCOUNTER → 2024-02-10 | Outpatient (CLI) | payer MEDICARE, SELFPAY | END | disposition home or self-care (01) | LOC: LABSPEC 14:09 | PROVIDERS: PCP Nurse Practitioner Primary Care; Referring Provider Internal Medicine Pulmonary Disease; Visit Provider Internal Medicine Pulmonary Disease | DX: R05.9 Cough, unspecified (principal); R06.02 Shortness of breath | CPT/HCPCS: 87070; 87205 ==

== ENCOUNTER → 2024-03-02 | Outpatient (CLI) | payer MEDICARE, SELFPAY ==
--- NOTE | 2024-03-02 13:55 | RAD_ITS ---
PROCEDURE: Sniff test. Shortness of breath. DATE OF EXAMINATION: March 02, 2024. INDICATION: Male, 83 years old. Shortness of breath. FLUOROSCOPY TIME (if supplied): (29 seconds) minutes/seconds. 13.31 mGy. One radiographic image was obtained. RAD/Fluoroscopy 1 Hr or Less IMPRESSION: There is elevation of the left hemidiaphragm. Normal movement of both hemidiaphragms. Electronically Signed: Deven Heck MD at 15:07 EDT ,
== END | disposition home or self-care (01) ==
LOC: RAD 13:41
PROVIDERS: PCP Nurse Practitioner Primary Care; Referring Provider Internal Medicine Pulmonary Disease; Visit Provider Internal Medicine Pulmonary Disease
DX: R06.02 Shortness of breath (principal); J44.9 Chronic obstructive pulmonary disease, unspecified
CPT/HCPCS: 76000